=== PATIENT | female | born 1930 | race Two or more races ===

== ENCOUNTER 2022-04-30 14:37 | Inpatient (IN) | payer MEDICARE, BC ==
[2022-04-30] MEDS ORDERED: MORPHINE SULFATE 2 MG/ML SYRINGE IVP STA (15:32)
[2022-04-30] MEDS ORDERED: SODIUM CHLORIDE 0.9% 1,000 ML IV STA (15:37)
[2022-04-30 16:00] LABS: Basophils % (A) 1 %; Eosinophils # (A) 0.1 k/uL (0-0.7); Eosinophils % (A) 1 %; HCT 40.7 % (34.0-46.0); HGB 13.2 gm/dL (11.4-16.0); Lymphocytes # (A) 0.6 k/uL (1.0-4.8); Lymphocytes % (A) 10 %; MCH 33.1 pg (25.0-35.0); MCHC 32.5 g/dL (31.0-37.0); MCV 101.8 fL (80.0-100.0); Macrocytosis Slight; Mean Platelet Volume 8.5; Monocytes # (A) 0.6 k/uL (0-1.0); Monocytes % (A) 10 %; Neutrophils # (A) 4.7 k/uL (1.3-7.7); Neutrophils % (A) 78 %; Platelet Count 330 k/uL (150-450); RBC 3.99 m/uL (3.80-5.40); RDW 14.2 % (11.5-15.5)
--- NOTE | 2022-04-30 16:01 | XR ---
EXAMINATION TYPE: XR pelvis AP view DATE OF EXAM: 04/30/2022 CLINICAL HISTORY: Fall injury with pain TECHNIQUE: A single AP view of the pelvis is obtained. COMPARISON: None. FINDINGS: Osseous structures are demineralized which is noted to lower radiographic sensitivity. Ther e is no acute fracture/dislocation evident in the pelvis. [id number] axial joint space loss and mild acetabular spurring in both hips is present. Pubic symphysis is intact. Sacroiliac joints are grossly preserved. Overlying vascular calcification is seen bilaterally. IMPRESSION: There is no acute fracture or dislocation in the pelvis.
[2022-04-30 16:12] LABS: ALT 24 U/L (4-34); AST 34 U/L (14-36); African American GFR (CKD) >90 (>60 ml/min/1.73 sqM); Albumin 3.6 g/dL (3.5-5.0); Alkaline Phosphatase 61 U/L (38-126); Amylase 76 U/L (30-110); Anion Gap 8 mmol/L; Blood Urea Nitrogen 28 mg/dL (7-17); Calcium 8.9 mg/dL (8.4-10.2); Carbon Dioxide 26 mmol/L (22-30); Chloride 106 mmol/L (98-107); Glucose 99 mg/dL (74-99); Lipase 162 U/L (23-300); Non-African American GFR(CKD) 80 (>60 ml/min/1.73 sqM); Potassium 4.2 mmol/L (3.5-5.1); Sodium 140 mmol/L (137-145); Total Bilirubin 0.7 mg/dL (0.2-1.3); Total Protein 6.4 g/dL (6.3-8.2)
[2022-04-30 16:13] LABS: INR 0.9 (<1.2); Partial Thromboplastin Time 23.3 sec (22.0-30.0); Prothrombin Time 9.7 sec (9.0-12.0)
--- NOTE | 2022-04-30 17:09 | CT ---
EXAMINATION TYPE: CT brain kiran wo con DATE OF EXAM: 04/30/2022 COMPARISON: None HISTORY: head trauma, minor fall CT DLP: 6.7 mGycm Automated exposure control for dose reduction was used. Images of the brain and cervical spine obtained with no contrast. There is diffuse cerebral cortical atrophy. There is no mass effect or midline shift. No sign of intr acranial hemorrhage. There is some hypodensity in the periventricular white matter. Calvarium is inta ct. The cervical vertebra show no compression fracture. No significant subluxation deformity. There is mu ltilevel mild cervical facet arthropathy. The skull base is intact. There is normal aeration of the m astoid sinuses. Occipital bone is intact. IMPRESSION: Cerebral atrophy and chronic small vessel ischemia. No acute intracranial abnormality. Mild multilevel cervical spondylotic changes. No fracture seen.
--- NOTE | 2022-04-30 17:27 | CT ---
EXAMINATION TYPE: CT ChestAbdPelvis w con DATE OF EXAM: 04/30/2022 COMPARISON: None HISTORY: head trauma, minor fall CT DLP: 2056.7 mGycm Automated exposure control for dose reduction was used. CONTRAST: Performed with IV Contrast, patient injected with 100 mL of Isovue 370. Images obtained from the thoracic inlet to the floor the pelvis with the IV contrast. There is moderate left-sided pleural effusion. There is airspace consolidation and atelectasis left l ower lobe. The right lung is fairly clear. Heart is enlarged. No mediastinal adenopathy. There are no hilar masses. Thoracic aorta is intact. No aneurysm or dissection. No filling defect seen in the pul monary arteries. Liver and spleen are intact. There is elevated left diaphragm. Stomach is not dilated. Gallbladder ap pears intact. No dilated ducts. There is normal contrast opacification of the kidneys. No hydronephrosis. There is a large urinary bl adder. No free fluid in the pelvis. There is dilated rectum with fecal material that measures 8.5 cm. No ascites. No evidence of a bowel obstruction. No free air. The bony pelvis is intact. No evidence of hip fracture. There is L2 compression fracture 25%. There is also compression fracture L1 and T12 up to 20%. These fractures could be relatively acute. The sternum is intact. No evidence of any displ aced rib fracture. There is evidence for old lateral healed right-sided rib fracture. Delayed images show normal renal excretion. IMPRESSION: Thoracic and lumbar mild compression fractures could be acute. Rectal fecal impaction. Consolidation and atelectasis left lower lobe with left pleural effusion. Mild cardiomegaly..
--- NOTE | 2022-04-30 17:29 | CT ---
EXAMINATION TYPE: CT thor lumbar spine w con DATE OF EXAM: 04/30/2022 COMPARISON: None HISTORY: head trauma, minor fall CT DLP: 2056.7 mGycm Automated exposure control for dose reduction was used. CONTRAST: Performed with IV Contrast, patient injected with 100 mL of Isovue 370. Images obtained from T1 to S1 with the IV contrast. There is osteopenia. There is no thoracic paraspinal mass. There is left pleural effusion and left lo wer lobe infiltrate and atelectasis. There is compression deformities with anterior wedging of T12 and L1 and L2 up to 25%. Fractures coul d be acute. The sacroiliac joints are intact. No focal bone destruction. IMPRESSION: Multiple compression fractures could be acute fractures in the thoracic and lumbar spine as above..
[2022-04-30] MEDS ORDERED: VANCOMYCIN IV PER PHARMACY 1 EACH MISC MISCELLANE PRN (18:15)
[2022-04-30] MEDS ORDERED: VANCOMYCIN 1,500 MG in SODIUM CHLORIDE 0.9% 500 ML 500 ML IVPB ONE (19:00)
[2022-04-30] MEDS ORDERED: ACETAMINOPHEN TAB 325 MG TAB PO PRN (19:22)
[2022-04-30] MEDS ORDERED: MORPHINE SULFATE 4 MG/ML SYRINGE IV PRN (19:22)
[2022-04-30] MEDS ORDERED: KETOROLAC 15 MG/ML 1 ML VIAL IVP PRN (19:22)
[2022-04-30] MEDS ORDERED: NALOXONE 0.4 MG/ML 1 ML VIAL IV PRN (19:22)
--- NOTE | 2022-04-30 19:35 | ED ---
General Adult HPI - General Chief complaint: Skin/Abscess/Foreign Body Stated complaint: lt breast infection, weakness Time Seen by Provider: 04/30/22 15:15 Source: patient, EMS, RN notes reviewed, old records reviewed Mode of arrival: EMS Limitations: no limitations - History of Present Illness Initial comments: Patient is an 89-year-old female with past medical history remarkable for thyroid disorder currently on no medications who has not seen a doctor for 3 years presents to the emergency department complaining of a worsening wound located in her left armpit, left breast. She is concerned that it may be cancer. States it has been present for multiple months to years, and the open wound aspect of it has been present for at least multiple months. She presents today as it is been losing a foul-smelling liquid more, as well as bleeding at t he site. She denies any fevers. Denies any nausea, vomiting, diarrhea. Denies any recent weight loss. States she has been falling more lately, has chronic back pain since a fall back in November. Last fell yesterday. No obvious injuries yesterday. She denies any sonia chest pain, shortness of breath, abdominal pain, nausea, vomiting. She also endorses left upper extremity swelling. Has no other acute complaint at this time. Presents for further evaluation at this time.Patient states she has not followed up as she has been chronically taking care of her which is been taking up most of her time. Has not seen a doctor in multiple years. - Related Data Home Medications Medication Instructions Recorded Confirmed Acetaminophen [Tylenol Extra 500 mg PO QID 04/30/22 04/30/22 Strength] Allergies Allergy/AdvReac Type Severity Reaction Status Date / Time No Known Allergies Allergy Verified 04/30/22 15:37 Review of Systems ROS Statement: Those systems with pertinent positive or pertinent negative responses have been documented in the HPI. Review of Systems: CONST: Denies fever EYES: Denies blurry vision ENT: Denies nasal congestion C/V: Denies Chest pain RESP: Denies shortness of breath GI: Denies abdominal pain : Denies dysuria SKIN: Endorses chronic chest wound MSK: Denies joint pain. NEURO: Denies headache ROS Other: All systems not noted in ROS Statement are negative. Past Medical History Past Medical History: Thyroid Disorder Additional Past Surgical History / Comment(s): thyroidectomy 1955 Smoking Status: Former smoker Past Alcohol Use History: Occasional Past Drug Use History: None Reported General Exam - General Exam Comments Initial Comments: General: Appears in no acute distress. HEAD: Normal with no signs of head trauma. EYES: PERRLA, EOMI, conjunctiva normal, no discharge. ENT: Hearing grossly intact, normal oropharynx. RESPIRATORY: Clear breath sounds bilaterally. No wheezes, rales, or rhonchi. No hypoxia. No increased work of breathing. C/V: Regular rate and rhythm. S1 and S2 auscultated, mild bilateral pitting edema of the lower extremities, peripheral pulses 2+ and intact throughout. Left upper extremity pitting edema. ABD: Abd is soft, nontender, nondistended EXT: Normal range of motion, no obvious deformity. Midline lumbar and thoracic spine tenderness to palpation. SKIN: Patient has what appears to be an open wound located over the breast tissue on the left which appears to have diminished the volume of breast tissue present. It is oozing blood as well as a serosanguineous/purulent material. There is surrounding induration. There is scabbing. No obvious fluctuance. No crepitus. Extends from the left breast region to the left axilla. Erythematous surrounding the area. No obvious masses palpated.Old bruising located over the left inferior posterior ribs. NEURO: Alert and oriented x 4. Cranial nerves II-XII intact. No focal sensory or strength deficits. Limitations: no limitations Course Vital Signs 04/30/22 04/30/22 04/30/22 14:44 18:51 19:24 Temperature 97.8 F Pulse Rate 60 87 87 Respiratory 18 18 16 Rate Blood Pressure 104/72 139/93 120/70 O2 Sat by Pulse 95 95 95 Oximetry Medical Decision Making - Medical Decision Making Based on the patient's presentation and physical exam, she does present with chronic skin wound which I'm concerned may be secondary to cancer. It is been present for multiple weeks to months with symptoms worsening for multiple weeks. She has been having left upper extremity swelling for multiple weeks as well. She presents today because she fell yesterday and the symptoms are getting worse. We will obtain broad workup including CT imaging of the chest abdomen pelvis. CT brain and spinal also be obtained. Prior pulmonary labs as well as the left upper extremity duplex will be obtained. She was in agreement this plan. Vital signs are within acceptable limits. EKG shows no signs of acute ischemia but no prior EKG for comparison. Patient does appear to have new onset atrial flutter ablation. Laboratory studies are within acceptable limits. Blood and wound cultures were sent. Pelvic x-ray as interpreted by myself reveals no acute traumatic injury. CT imaging of the brain, cervical spine, thorax, abdomen, pelvis, thoracic spine, lumbar spine was remarkable for compression fractures in the lumbar and thoracic spine. No obvious air bubbles to suggest a necrotizing infection located over the left chest. Patient does have a small left pleural effusion. No other obvious findings on exam. CT brain shows no acute intracranial process. CT brain and the above CT scans were interpreted by myself. Venous duplex is still pending at this time. I discussed the findings with the patient as well as the patient's family. She will be started on vancomycin for concern for cellulitis for the left chest wound. We will consult infectious disease to evaluate the wound. As it does have some blood oozing from the site as well as what appears to be some purulent material, we will hold blood thinners at this time. Her atrial fibrillation I suspect is likely chronic we will have cardiology evaluate the patient and determined anticoagulation. Echo was ordered for the patient. She was in agreement this plan. I spoke with the admitting physician, Dr. Awan as well as LOBITO Cuadra who accepted the patient. Patient was admitted and serous condition. Orthopedics will be consulted for the patient's compression fractures, which are likely chronic from the fall in November she does have chronic pain from that fall at those sites. - Lab Data Result diagrams: 04/30/22 15:37 04/30/22 15:37 Lab Results 04/30/22 04/30/22 04/30/22 Range/Units 15:20 15:37 15:37 WBC 6.0 (3.8-10.6) k/uL RBC 3.99 (3.80-5.40) m/uL Hgb 13.2 (11.4-16.0) gm/dL Hct 40.7 (34.0-46.0) % MCV 101.8 H (80.0-100.0) fL MCH 33.1 (25.0-35.0) pg MCHC 32.5 (31.0-37.0) g/dL RDW 14.2 (11.5-15.5) % Plt Count 330 (150-450) k/uL MPV 8.5 Neutrophils % 78 % Lymphocytes % 10 % Monocytes % 10 % Eosinophils % 1 % Basophils % 1 % Neutrophils # 4.7 (1.3-7.7) k/uL Lymphocytes # 0.6 L (1.0-4.8) k/uL Monocytes # 0.6 (0-1.0) k/uL Eosinophils # 0.1 (0-0.7) k/uL Basophils # 0.0 (0-0.2) k/uL Macrocytosis Slight PT 9.7 (9.0-12.0) sec INR 0.9 (<1.2) APTT 23.3 (22.0-30.0) sec Sodium (137-145) mmol/L Potassium (3.5-5.1) mmol/L Chloride (98-107) mmol/L Carbon Dioxide (22-30) mmol/L Anion Gap mmol/L BUN (7-17) mg/dL Creatinine (0.52-1.04) mg/dL Est GFR (CKD-EPI)AfAm (>60 ml/min/1.73 sqM) Est GFR (CKD-EPI)NonAf (>60 ml/min/1.73 sqM) Glucose (74-99) mg/dL Plasma Lactic Acid Tomas (0.7-2.0) mmol/L Calcium (8.4-10.2) mg/dL Total Bilirubin (0.2-1.3) mg/dL AST (14-36) U/L ALT (4-34) U/L Alkaline Phosphatase (38-126) U/L Total Protein (6.3-8.2) g/dL Albumin (3.5-5.0) g/dL Amylase (30-110) U/L Lipase (23-300) U/L Blood Type A Positive Blood Type Confirm Blood Type Recheck No Previous Record Bld Type Recheck Status CABO Indicated Antibody Screen NEGATIVE Spec Expiration Date 05/03/2022231904/30/22 04/30/22 04/30/22 Range/Units 15:37 15:37 15:37 WBC (3.8-10.6) k/uL RBC (3.80-5.40) m/uL Hgb (11.4-16.0) gm/dL Hct (34.0-46.0) % MCV (80.0-100.0) fL MCH (25.0-35.0) pg MCHC (31.0-37.0) g/dL RDW (11.5-15.5) % Plt Count (150-450) k/uL MPV Neutrophils % % Lymphocytes % % Monocytes % % Eosinophils % % Basophils % % Neutrophils # (1.3-7.7) k/uL Lymphocytes # (1.0-4.8) k/uL Monocytes # (0-1.0) k/uL Eosinophils # (0-0.7) k/uL Basophils # (0-0.2) k/uL Macrocytosis PT (9.0-12.0) sec INR (<1.2) APTT (22.0-30.0) sec Sodium 140 (137-145) mmol/L Potassium 4.2 (3.5-5.1) mmol/L Chloride 106 (98-107) mmol/L Carbon Dioxide 26 (22-30) mmol/L Anion Gap 8 mmol/L BUN 28 H (7-17) mg/dL Creatinine 0.63 (0.52-1.04) mg/dL Est GFR (CKD-EPI)AfAm >90 (>60 ml/min/1.73 sqM) Est GFR (CKD-EPI)NonAf 80 (>60 ml/min/1.73 sqM) Glucose 99 (74-99) mg/dL Plasma Lactic Acid Tomas 1.3 (0.7-2.0) mmol/L Calcium 8.9 (8.4-10.2) mg/dL Total Bilirubin 0.7 (0.2-1.3) mg/dL AST 34 (14-36) U/L ALT 24 (4-34) U/L Alkaline Phosphatase 61 (38-126) U/L Total Protein 6.4 (6.3-8.2) g/dL Albumin 3.6 (3.5-5.0) g/dL Amylase 76 (30-110) U/L Lipase 162 (23-300) U/L Blood Type Blood Type Confirm A Positive Blood Type Recheck Bld Type Recheck Status Antibody Screen Spec Expiration Date - EKG Data -: EKG Interpreted by Me EKG Comments: 12-lead Electrocardiogram Interpretation Note EKG was reviewed and interpreted by myself. 12-lead ECG performed at 1609 is interpreted by me as revealing atrial fibrillation at a rate of 106 beats per minute. Anderson is normal. QRS duration is 82 ms, QTc is 411 ms.. There were no ST or T wave abnormalities to suggest myocardial ischemia or injury. R wave progression across the precordium was satisfactory. By my interpretation this EKG is non-diagnostic for acute ischemia. No prior EKG for comparison. Critical Care Time Critical Care Time: Yes Total Critical Care Time: 35 Critical Care Time: Upon my evaluation, this patient had a high probability of imminent or life- threatening deterioration due to severe left chest wound, which required my direct attention, intervention, and personal management. I have personally provided 35 minutes of critical care time exclusive of time spent on separately billable procedures. Time includes review of laboratory data, radiology results, discussion with consultants, and monitoring for potential decompensation. Interventions were performed as documented in my note. Disposition Clinical Impression: Wound of left breast, Cellulitis, New onset a-fib, Lumbar compression fracture, Thoracic compression fracture Disposition: ADMITTED IP TO THIS [facility] Condition: Stable Time of Disposition: 18:20
--- NOTE | 2022-04-30 19:51 | US ---
EXAMINATION TYPE: US venous doppler duplex UE DATE OF EXAM: 04/30/2022 COMPARISON: NONE CLINICAL HISTORY: Patient has severe swelling of left arm with extensive interstitial edema. SIDE PERFORMED: Left Left Arm: Exam very limited due to patient mobility and severe interstitial edema. Limited visualiza tion of subclavian vein shows probable patent vein. Flow is thready at this area. Unable to visualize axilla vein, brachial vein seen only at antecubital fossa. No obvious DVT, however exam severely mayen ited. Basilic vein not seen. IMPRESSION: Exam is limited. No evidence of acute deep vein thrombosis in the left arm. There is some thready villa earing flow in the subclavian vein and some limited chronic deep vein thrombosis is possible.
[2022-05-01] MEDS ORDERED: VANCOMYCIN 1,250 MG in SODIUM CHLORIDE 0.9% 250 ML IVPB SCH (08:00)
[2022-05-01 09:42] LABS: Appearance,Urine Clear (Clear); Bilirubin,Urine Negative (Negative); Blood,Urine Negative (Negative); Color,Urine Yellow; Glucose,Urine (UA) Negative (Negative); Ketones,Urine Negative (Negative); Leukocyte Esterase,Urine Negative (Negative); Nitrite,Urine Negative (Negative); PH, Urine 5.5 (5.0-8.0); Protein,Urine Trace (Negative); Specific Gravity,Urine 1.031 (1.001-1.035); Urobilinogen,Urine <2.0 mg/dL (<2.0)
[2022-05-01 11:19] LABS: Basophils # (A) 0.06 X 10*3/uL (0.00-0.10); Eosinophils # (A) 0.07 X 10*3/uL (0.04-0.35); Eosinophils % (A) 1.2 %; HCT 37.2 % (37.2-46.3); HGB 11.7 g/dL (12.0-15.0); Immature Grans, Automated 0.3 %; Lymphocytes # (A) 0.73 X 10*3/uL (0.90-5.00); Lymphocytes % (A) 12.4 %; MCH 32.3 pg (27.0-32.0); MCHC 31.5 g/dL (32.0-37.0); MCV 102.8 fL (80.0-97.0); Mean Platelet Volume 9.8 fL (9.5-12.2); Monocytes # (A) 0.72 X 10*3/uL (0.20-1.00); Monocytes % (A) 12.3 %; NRBC Per 100 WBC 0 /100 WBCS (0.0-0.0); Neutrophils # (A) 4.27 X 10*3/uL (1.80-7.70); Neutrophils % (A) 72.8 %; Platelet Count 270 X 10*3/uL (140-440); RBC 3.62 X 10*6/uL (4.10-5.20); RDW 15.5 % (11.5-14.5); WBC 5.87 X 10*3/uL (4.50-10.00)
[2022-05-01 11:27] LABS: African American GFR (CKD) 93.7 (60.0-200.0); Anion Gap 11.3 mmol/L (10.00-18.00); BUN/Creat Ratio 37.5 Ratio (12.00-20.00); Blood Urea Nitrogen 22.5 mg/dL (9.0-27.0); Calcium 8.6 mg/dL (8.7-10.3); Carbon Dioxide 22.7 mmol/L (20.0-27.5); Non-African American GFR(CKD) 80.8 (60.0-200.0); Potassium 4.3 mmol/L (3.5-5.5)
[2022-05-01] MEDS ORDERED: HYDROcodone/APAP 5-325MG 1 EACH TAB PO PRN (11:57)
--- NOTE | 2022-05-01 13:21 | P.CNOR ---
History of Present Illness - [facility] Consult date: 05/01/22 Consult reason: fracture, back pain History of present illness: The patient is very pleasant 89-year-old female who was seen and examined in the ER at bedside today. She is accompanied by her daughter and son. Apparently patient is being evaluated in the emergency room and seen due to cellulitis at her breast as well as swelling and cellulitis at her left lower extremity. She is also been having pain at her back and sustained a fall on . She says she has new pain at her mid back since her fall on . She says she did have pain earlier this year in November after sustaining a fall as well. She says that pain was much worse than his current pain but it was improving until she fell again the other day. She denies any new changes with numbness and tingling in her lower extremity is. She has some swelling in her left foot and lower leg. She denies prior problems with her lower extremities. She denies any change in bowel bladder function. She has not had specific treatment for her sp ine in the past. Review of Systems As stated per HPI. Apparently she is normally a limited community ambulate or put able to get around. She says she fell while picking up dog poop She admits some changes in her breast with some drainage. She also admits to swelling and some erythema at her left lower leg She denies any new changes in bowel bladder function. She denies any new numbness tingling her lower extremities Past Medical History Past Medical History: Thyroid Disorder Additional Past Surgical History / Comment(s): thyroidectomy 1954 Smoking Status: Former smoker Past Alcohol Use History: Occasional Past Drug Use History: None Reported Medications and Allergies Home Medications Medication Instructions Recorded Confirmed Type Acetaminophen [Tylenol Extra 500 mg PO QID 04/30/22 04/30/22 History Strength] Allergies Allergy/AdvReac Type Severity Reaction Status Date / Time No Known Allergies Allergy Verified 04/30/22 15:37 Physical Examination Osteopathic Statement: *. No significant issues noted on an osteopathic structural exam other than those noted in the History and Physical/Consult. - L Spine: dermatomal strength & reflexes bilateral Strength: hip flexion: 5/5 (At her back she has tenderness to palpation over her thoracolumbar junction. There is no open wounds lacerations or abrasions. She is nontender over her lower back or sacrum. Her lower extremities have sustained dorsal flexion plantarflexion and EHL. There is some diffuse swelling at her left lo) Strength: hip extension: 5/5 (She has good strength at her legs but she has some diffuse swelling in her left lower extremity) Results - Labs Labs: Abnormal Lab Results - Last 24 Hours (Table) 04/30/22 04/30/22 05/01/22 Range/Units 15:37 15:37 08:20 RBC 3.62 L (4.10-5.20) X 10*6/uL Hgb 11.7 L (12.0-15.0) g/dL MCV 101.8 H 102.8 H (80.0-100.0) fL MCH 32.3 H (27.0-32.0) pg MCHC 31.5 L (32.0-37.0) g/dL RDW 15.5 H (11.5-14.5) % Lymphocytes # 0.6 L 0.73 L (1.0-4.8) k/uL BUN 28 H (7-17) mg/dL BUN/Creatinine Ratio (12.00-20.00) Ratio Calcium (8.7-10.3) mg/dL Urine Protein (Negative) 05/01/22 05/01/22 Range/Units 08:20 09:10 RBC (4.10-5.20) X 10*6/uL Hgb (12.0-15.0) g/dL MCV (80.0-100.0) fL MCH (27.0-32.0) pg MCHC (32.0-37.0) g/dL RDW (11.5-14.5) % Lymphocytes # (1.0-4.8) k/uL BUN (7-17) mg/dL BUN/Creatinine Ratio 37.50 H (12.00-20.00) Ratio Calcium 8.6 L (8.7-10.3) mg/dL Urine Protein Trace H (Negative) Microbiology - Last 24 Hours (Table) 04/30/22 15:15 Blood Culture - Final Blood 04/30/22 15:53 Gram Stain - Preliminary Axilla - Left Wound Culture - Preliminary 04/30/22 15:53 Anaerobic Culture - Preliminary Axilla - Left H & H 04/30/22 05/01/22 Range/Units 15:37 08:20 Hgb 13.2 11.7 L (11.4-16.0) gm/dL Hct 40.7 37.2 (34.0-46.0) % Coagulation 04/30/22 Range/Units 15:37 INR 0.9 (<1.2) Result Diagrams: 05/01/22 08:20 05/01/22 08:20 - Diagnostic results CT Scan - lumbar: report reviewed (There is significant disc degeneration and facet arthrosis and lumbar spine. There is approximately 20-40% anterior height loss each at T12-L1 and L2), image reviewed (Imaging of the computed tomography scan of the thoracic lumbar spine reviewed as is the report. It shows evidence of compression deformities at T12-L1 and L2. It is difficult to determine the chronicity of the fractures on CT. There does seem to be a relatively newer fracture line at L1. 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 It is difficult to determine if the T12 and L2 fractures are new or but they appear to be somewhat subacute and the fracture lines at L1 appear to be more acute. She her exam does correlate with pain over the thoracolumbar junction. She is not having acute neurologic deficit in her lower extremities and I think that she can have benefit with conservative treatment with bracing. We will order her a high chairback LSO. Hopefully she will be able to wear this and still I have access and treatment with her breast tissue. She is continue management for this as well as for her lower extremity cellulitis with medicine. We will order the LSO brace and she can try to mobilize with the brace intact. We'll see discussed the possibility of vertebral kyphoplasty but certainly would like to avoid surgical intervention if possible as with the patient and her family. We will try conservative treatment over the next several weeks to see if this allows the fracture to heal appropriately with her comfort. We'll follow her along with you for now. We will order the brace and have her mobilize with physical therapy.
[2022-05-01] MEDS: PIPERACILLIN-TAZOBACTAM 3.375 GM in SODIUM CHLORIDE 0.9% 100 ML IVPB SCH ×2 (14:15→19:52)
[2022-05-01] MEDS: HEPARIN SODIUM,PORCINE/PF 5,000 UNIT/0.5 ML SYRINGE SQ SCH ×2 (14:16→19:53)
--- NOTE | 2022-05-01 20:18 | HP ---
HISTORY AND PHYSICAL CHIEF COMPLAINT: Ulcerating mass of the left breast and fall. HISTORY OF PRESENT ILLNESS: This 89-year-old woman with a past medical history of hypothyroidism, who has not seen the doctor for the last 3 years had a fall. The patient is complaining of pain in the back and also pain to the left armpit and the patient had an ulcerating mass in the left breast. The patient came to [facility] for evaluation and treatment. The mass was foul-smelling. Cultures are growing gram-negative. There is no history of any fever, rigors, chills at this time. PAST MEDICAL HISTORY: Thyroid problems. Rest of the history and chart is reviewed. HOME MEDICATIONS: Tylenol. ALLERGIES: Unknown. FAMILY HISTORY: No history of heart disease or strokes in the family. SOCIAL HISTORY: Previous history of smoking, occasional alcohol. REVIEW OF SYSTEMS: Fourteen-point review of systems negative except as mentioned earlier. PHYSICAL EXAMINATION: VITAL SIGNS: Pulse is 81, blood pressure 130/60, respirations 18. HEENT: Conjunctivae normal. NECK: No jugular venous distention. No carotid bruit. CARDIOVASCULAR: No murmur. RESPIRATIONS: Breath sounds diminished at the bases. Few rhonchi. No crackles. ABDOMEN: Soft, nontender. LEGS: No swelling. NERVOUS SYSTEM: No focal deficits. SKIN: Left breast, an ulcerating mass present with foul smelling extending to the arm with left arm lymphedema also present. BACK: Tenderness present. JOINTS: No active deforming arthropathy. LABORATORY DATA: Hemoglobin 11.0. Rest of the labs are noted. The venous Doppler on the arm showed no significant DVT. The CT showed vertebral fractures and CT of the chest, abdomen, pelvis showed some atelectasis. ASSESSMENT: 1. Left breast mass with ulcerated mass and infection, cellulitis. 2. Fall and multiple thoracic compression fractures. 3. New onset atrial fibrillation. 4. Hypothyroidism. 5. Multiple medical issues. 6. History of noncompliance. RECOMMENDATIONS: The patient is an 89-year-old woman, who presented with multiple complex medical issues. We will monitor the patient closely. We will initiate broad-spectrum IV antibiotics. Pain medications. DVT prophylaxis. I would recommend Orthopedic as well as Hematology/Oncology and infectious disease evaluation. Overall prognosis extremely guarded. Further recommendations to follow. Cardiology also will be consulted for new- onset atrial fibrillation. MMODL / IJN: [id number] /
--- NOTE | 2022-05-01 20:25 | PN ---
PROGRESS NOTE SUBJECTIVE: Ariadne is an 89-year-old lady, who was admitted to hospital having had a fall at home and we were consulted for atrial fibrillation. Her EKG reads out as atrial fibrillation, but she is really in sinus rhythm with nonspecific ST-T wave changes and sinus tachycardia. The patient has a non-healing ulcer on the left side, probably represents an invasive breast cancer. She has not been seen by a physician for many many years. This mass on the left chest has been there for a long time. The patient does not have any chest pain or difficulty in breathing. She does not have any palpitations or syncope. For unclear reason, she had a BNP tested that comes back elevated. She does not have shortness of breath and does not have any leg edema and the elevated BNP is of unclear clinical significance. PAST MEDICAL HISTORY: Negative for hypertension, diabetes, dyslipidemia. Significant for long-standing mass lesion on her chest. MEDICATIONS: None. ALLERGIES: None. FAMILY HISTORY: Negative for premature coronary artery disease. SOCIAL HISTORY: Negative for current smoking, EtOH abuse, or drug abuse. REVIEW OF SYSTEMS: review of systems has been performed. Pertinents are as documented on exam. PHYSICAL EXAMINATION: GENERAL: Comfortable at rest. VITAL SIGNS: Heart rate is 80 beats per minute, blood pressure is 132/75, respiratory rate is 18, O2 saturation is 99% on room air. NECK: There is no jugular venous distention. Carotid upstroke is normal. CHEST: Reveals good air entry bilaterally. HEART: Reveals first and second heart sounds and a systolic murmur at the left lower sternal border. ABDOMEN: Soft. EXTREMITIES: Exam of extremities did not reveal any edema. She has a large ulcerated mass over the left breast, probably represents an invasive breast cancer. ASSESSMENT AND PLAN: 1. Cardiac arrhythmia. 2. Breast cancer with skin invasion. PLAN: The patient is not in atrial fibrillation. She has an abnormal EKG. We will obtain a 2D echo on Tuesday to assess her wall motion and LV function primarily to rule out prior myocardial infarction. MMODL / IJN: [id number] /
--- NOTE | 2022-05-01 23:13 | P.CONS ---
History of Present Illness - Reason for Consult Consult date: 05/01/22 Chest wound/cellulitis Requesting physician: Ancelmo Faustin - Chief Complaint Pain and nonhealing wound to the left breast area x months - History of Present Illness Patient is a 89-year-old female with a past medical history significant for thyroid disorder currently on no medication and apparently has not seen a physician in 3 years presenting to the ER for a nonhealing wound to the left armpit/ left breast area with the patient has for months to years ho kyler noticed to have worsening over the last few weeks to months is becoming more foul-smelling drainage complaining of pain mostly dull aching to sharp 5-6 or 10 no radiation patient denies any fever patient has been feeling weak and falling more lately last fall was yesterday and the day before presentation to the hospital with the symptom the patient was evaluated by the ER physician on arrival to the ER patient was afebrile and no fever have been recorded subsequently patient did have normal white count kidney function has been normal liver enzymes are normal urine has been negative patient did have blood cultures drawn which are showing gram-positive cocci patient did have a CT of the chest abdominal pelvis some mild skin thickening over the anterior left breast that could be cellulitis rectal fecal impaction, consolidation and atelectasis left lower lobe patient also have a CT of the thoracic and lumbar spine which did shows multiple compression deformities in thoracic and lumbar spine patient is currently being treated with vancomycin and Zosyn infectious disease was consulted for further management of antibiotic therapy Review of Systems Positive point has been mentioned in the HPI rest of the systems are negative Past Medical History Past Medical History: Thyroid Disorder Additional Past Surgical History / Comment(s): thyroidectomy 1954 Smoking Status: Former smoker Past Alcohol Use History: Occasional Past Drug Use History: None Reported - Past Family History Father Family Medical History: Myocardial Infarction ([place]) Mother Family Medical History: CVA/TIA, Myocardial Infarction ([place]) Medications and Allergies Home Medications Medication Instructions Recorded Confirmed Type Acetaminophen [Tylenol Extra 500 mg PO QID 04/30/22 04/30/22 History Strength] Ciprofloxacin HCl [Cipro] 500 mg PO BID 10 Days #20 tab 05/07/22 Rx Folic Acid 1 mg PO DAILY@1200 tab 05/07/22 Rx Heparin Sodium,Porcine [Heparin 5,000 unit SQ Q12HR #60 each 05/07/22 Rx Sodium] Melatonin 5 mg PO HS PRN #3 tablet 05/07/22 Rx Multivitamins, Thera [Multivitamin 1 each PO DAILY@1200 tab 05/07/22 Rx (formulary)] Sennosides [Senokot] 8.6 mg PO BID #60 tab 05/07/22 Rx Thiamine [Vitamin B-1] 100 mg PO DAILY@1200 tab 05/07/22 Rx bisacodyL [Dulcolax] 10 mg RECTAL ONCE PRN suppositor 05/07/22 Rx metroNIDAZOLE [Flagyl] 500 mg PO TID 10 Days #30 tab 05/07/22 Rx polyethylene glycoL 3350 [Miralax] 17 gm PO DAILY PRN packet 05/07/22 Rx Allergies Allergy/AdvReac Type Severity Reaction Status Date / Time No Known Allergies Allergy Verified 04/30/22 15:37 Physical Exam Vitals: Vital Signs Temp Pulse Pulse Resp BP BP BP 05/01/22 09:11 82 16 122/78 05/01/22 04:00 81 18 136/69 05/01/22 02:00 93 18 04/30/22 23:02 97.9 F 86 16 111/63 04/30/22 19:24 87 16 120/70 04/30/22 18:51 87 18 139/93 04/30/22 14:44 97.8 F 60 18 104/72 Pulse Ox 05/01/22 09:11 99 05/01/22 04:00 96 05/01/22 02:00 04/30/22 23:02 95 04/30/22 19:24 95 04/30/22 18:51 95 04/30/22 14:44 95 Intake and Output 04/30/22 05/01/22 05/01/22 22:59 06:59 14:59 Other: Voiding Method Bedpan # Voids 0 0 GENERAL DESCRIPTION: Elderly female lying in bed, no distress. No tachypnea or accessory muscle of respiration use. HEENT: Shows Pallor , no scleral icterus. Oral mucous membrane is dry. No pharyngeal erythema or thrush NECK: Trachea central, no thyromegaly. LUNGS: Unlabored breathing. Clear to auscultation anteriorly. No wheeze or crackle. HEART: S1, S2, regular rate and rhythm. No loud murmur ABDOMEN: Soft, no tenderness , guarding or rigidity, no organomegaly EXTREMITIES: No edema of feet. SKIN: No left chest wall and axilla did have a large wound with foul-smelling drainage. NEUROLOGICAL: The patient is awake, alert, oriented x3, mood and affect normal. Results CBC & Chem 7: 05/06/22 06:41 05/06/22 06:41 Labs: Abnormal Lab Results - Last 24 Hours (Table) 04/30/22 04/30/22 05/01/22 Range/Units 15:37 15:37 08:20 RBC 3.62 L (4.10-5.20) X 10*6/uL Hgb 11.7 L (12.0-15.0) g/dL MCV 101.8 H 102.8 H (80.0-100.0) fL MCH 32.3 H (27.0-32.0) pg MCHC 31.5 L (32.0-37.0) g/dL RDW 15.5 H (11.5-14.5) % Lymphocytes # 0.6 L 0.73 L (1.0-4.8) k/uL BUN 28 H (7-17) mg/dL BUN/Creatinine Ratio (12.00-20.00) Ratio Calcium (8.7-10.3) mg/dL Urine Protein (Negative) 05/01/22 05/01/22 Range/Units 08:20 09:10 RBC (4.10-5.20) X 10*6/uL Hgb (12.0-15.0) g/dL MCV (80.0-100.0) fL MCH (27.0-32.0) pg MCHC (32.0-37.0) g/dL RDW (11.5-14.5) % Lymphocytes # (1.0-4.8) k/uL BUN (7-17) mg/dL BUN/Creatinine Ratio 37.50 H (12.00-20.00) Ratio Calcium 8.6 L (8.7-10.3) mg/dL Urine Protein Trace H (Negative) Microbiology - Last 24 Hours (Table) 04/30/22 15:15 Blood Culture - Final Blood 04/30/22 15:53 Gram Stain - Preliminary Axilla - Left Wound Culture - Preliminary 04/30/22 15:53 Anaerobic Culture - Preliminary Axilla - Left Assessment and Plan (1) Cellulitis Status: Acute Code(s): L03.90 - CELLULITIS, UNSPECIFIED SNOMED Code(s): 694125214 (2) Wound of left breast Status: Acute Priority: High Code(s): S21.002A - UNSPECIFIED OPEN WOUND OF LEFT BREAST, INITIAL ENCOUNTER SNOMED Code(s): 97422853 Plan: 1patient with a chronic nonhealing wound to the left chest wall and armpit area with concern for possible malignancy as did have hard margins and no significant redness some drainage and foul-smelling possible secondary bacterial infection not entirely excluded. 2patient will benefit from biopsy and surgical debridement 3-patient to continue with the Zosyn while waiting for the culture to finalize, however discontinue vancomycin to decrease risk of nephrotoxicity We will follow on clinical condition and cultures to further adjust medication if needed Thank you for this consultation will follow this patient along with you Time with Patient: Greater than 30
[2022-05-02] MEDS: PIPERACILLIN-TAZOBACTAM 3.375 GM in SODIUM CHLORIDE 0.9% 100 ML IVPB SCH ×3 (03:02→19:42)
[2022-05-02] MEDS: HEPARIN SODIUM,PORCINE/PF 5,000 UNIT/0.5 ML SYRINGE SQ SCH ×2 (09:03→19:42)
[2022-05-02 09:46] LABS: Basophils # (A) 0.1 k/uL (0-0.2); Basophils % (A) 1 %; Eosinophils # (A) 0.2 k/uL (0-0.7); Eosinophils % (A) 3 %; HCT 36.8 % (34.0-46.0); HGB 11.6 gm/dL (11.4-16.0); Hypochromasia Slight; Lymphocytes # (A) 0.7 k/uL (1.0-4.8); Lymphocytes % (A) 11 %; MCH 32.9 pg (25.0-35.0); MCHC 31.6 g/dL (31.0-37.0); Macrocytosis Moderate; Mean Platelet Volume 8.4; Monocytes # (A) 0.5 k/uL (0-1.0); Monocytes % (A) 8 %; Neutrophils # (A) 4.6 k/uL (1.3-7.7); Neutrophils % (A) 76 %; Platelet Count 289 k/uL (150-450); RBC 3.54 m/uL (3.80-5.40); RDW 14.5 % (11.5-15.5); WBC 6.1 k/uL (3.8-10.6)
[2022-05-02 09:59] LABS: African American GFR (CKD) >90 (>60 ml/min/1.73 sqM); Anion Gap 3 mmol/L; Blood Urea Nitrogen 19 mg/dL (7-17); Calcium 7.9 mg/dL (8.4-10.2); Carbon Dioxide 26 mmol/L (22-30); Chloride 107 mmol/L (98-107); Glucose 103 mg/dL (74-99); Non-African American GFR(CKD) 79 (>60 ml/min/1.73 sqM); Potassium 4.3 mmol/L (3.5-5.1); Sodium 136 mmol/L (137-145)
[2022-05-02] MEDS: THIAMINE 100 MG TAB PO SCH (10:59)
[2022-05-02] MEDS: MULTIVITAMINS, THERA 1 EACH TAB PO SCH (10:59)
[2022-05-02] MEDS: FOLIC ACID 1 MG TAB PO SCH (11:03)
[2022-05-02 11:10] LABS: T4, Free (Free Thyroxine) 1.47 ng/dL (0.78-2.19)
--- NOTE | 2022-05-02 12:16 | P.PN ---
Subjective Progress Note Date: 05/02/22 Patient is doing well resting comfortably in bed in no signs of acute distress. She denies chest pain or increasing shortness of breath. She remains sinus rhythm on the monitor. Patient was awaiting an echocardiogram. She is tender to the touch on the left side of the chest and axillary. due to a nonhealing ulcer on the left side probably representing invasive breast cancer. She does not wish to undergo an echocardiogram due to the discomfort of that area. At this time patient remains asymptomatic, patient's issue seem to be mainly related to to the unhealed ulcer. At this time further cardiac intervention is needed we'll continue to follow patient as needed. Objective - Vital Signs Vital signs: Vital Signs Temp 97.1 F L 05/02/22 11:14 Pulse 83 05/02/22 11:14 Resp 16 05/02/22 11:14 BP 129/72 05/02/22 11:14 Pulse Ox 94 L 05/02/22 11:14 FiO2 Intake & Output 05/01/22 05/02/22 05/02/22 18:59 06:59 18:59 Intake Total 305 Output Total 250 175 Balance -250 130 Weight 72.575 kg Intake: IV 5 Invasive Line 2 5 Oral 300 Output: Urine 250 175 Other: Voiding Method Indwelling Catheter Indwelling Catheter Indwelling Catheter - Exam PHYSICAL EXAM: VITAL SIGNS: Reviewed. GENERAL: Well-developed in no acute distress. HEENT: Head is normocephalic. Pupils are equal, round. Sclerae anicteric. Mucous membranes of the mouth are moist. NECK: Supple. No JVD or thyromegaly RESPIRATORY: Respirations even and unlabored. Lungs diminished to auscultation bilaterally. CARDIO: Regular rate and rhythm. S1 and S2 heard. No murmur or gallops. EXTREMITIES: Normal range of motion. Peripheral pulses intact. Large ulcerated mass over the left breast tender to the touch left upper extremity edema NEURO: Orientated to person, time, mood is appropriate - Labs CBC & Chem 7: 05/02/22 08:41 05/02/22 08:41 Labs: Abnormal Lab Results - Last 24 Hours (Table) 05/02/22 05/02/22 Range/Units 08:41 08:41 RBC 3.54 L (3.80-5.40) m/uL MCV 104.0 H (80.0-100.0) fL Lymphocytes # 0.7 L (1.0-4.8) k/uL Sodium 136 L (137-145) mmol/L BUN 19 H (7-17) mg/dL Glucose 103 H (74-99) mg/dL Calcium 7.9 L (8.4-10.2) mg/dL TSH 6.840 H (0.465-4.680) mIU/L Microbiology - Last 24 Hours (Table) 04/30/22 15:30 Blood Culture Gram Stain - Preliminary Blood 04/30/22 15:30 Blood Culture - Final Blood 04/30/22 15:53 Gram Stain - Preliminary Axilla - Left Wound Culture - Preliminary Gram Neg Bacilli 04/30/22 15:15 Blood Culture Gram Stain - Preliminary Blood Blood Culture - Preliminary Coagulase Negative Staph 04/30/22 15:15 Blood Culture - Final Blood Assessment and Plan Assessment: Cardiac arrhythmia Possible breast cancer with skin invasion Plan: Continue to follow on an as-needed basis Continue with all current cardiac medications Continue with telemetry monitoring Echocardiogram canceled, per patient Further recommendations based on clinical course The above impression and plan of care have been discussed and directed by the signing physician. Shanell Dalal, nurse practitioner, acting as scribe for signing physician.
--- NOTE | 2022-05-02 16:08 | P.CONS ---
History of Present Illness - Reason for Consult Consult date: 05/02/22 malignancy Requesting physician: Sandy Awan - Chief Complaint Foul smelling odor from breast wound - History of Present Illness Ms. Barbosa is a very pleasant 89 yo female with no PMH who is here for fall as well as foul smelling odor from a chronic left breast/axillary wound. States wound in left breast and axilla began several years ago. Initially felt a small lump lateral to her left nipple which she thought was a cyst however this slowly progressively grew. A few months ago she developed an open wound there. Now noticing new foul smelling discharge which prompted ED visit. Also admits to multiple falls, first one in October 2021. Work up with CT head and C spine overall negative, CBC normal with WBC 6, Hgb 13, MCV 101.8, normal platelets, normal CMP and coag's, pelvic X ray overall unremarkable. CT CAP with left lower lung consolidation and pleural effusion as well as T and L spine compression fractures. CT T and L spine confirmed multiple scattered compression fractures, possibly acute. LUE doppler was negative for DVT. Admitted with IV antibiotics. We were consulted for concern of malignancy. She does admit to weight loss however says that she has not been eating very well since the summer due to the pain from her back after her falls. She does live alone and is very independent, complete her ADLs on her own. Denies any smoking, alcohol, or drug use. Past Medical History Past Medical History: Thyroid Disorder Additional Past Surgical History / Comment(s): thyroidectomy 1954 Smoking Status: Former smoker Past Alcohol Use History: Occasional Past Drug Use History: None Reported - Past Family History Father Family Medical History: Myocardial Infarction ([place]) Mother Family Medical History: CVA/TIA, Myocardial Infarction ([place]) Medications and Allergies Home Medications Medication Instructions Recorded Confirmed Type Acetaminophen [Tylenol Extra 500 mg PO QID 04/30/22 04/30/22 History Strength] Allergies Allergy/AdvReac Type Severity Reaction Status Date / Time No Known Allergies Allergy Verified 04/30/22 15:37 Physical Exam Vitals: Vital Signs Temp Pulse Pulse Resp BP BP BP 05/01/22 17:10 97.8 F 79 18 127/68 05/01/22 14:22 97.7 F 84 18 135/82 05/01/22 09:11 82 16 122/78 05/01/22 04:00 81 18 136/69 05/01/22 02:00 93 18 04/30/22 23:02 97.9 F 86 16 111/63 04/30/22 19:24 87 16 120/70 04/30/22 18:51 87 18 139/93 Pulse Ox 05/01/22 17:10 94 L 05/01/22 14:22 94 L 05/01/22 09:11 99 05/01/22 04:00 96 05/01/22 02:00 04/30/22 23:02 95 04/30/22 19:24 95 04/30/22 18:51 95 Intake and Output 05/01/22 05/01/22 05/01/22 06:59 14:59 22:59 Other: Voiding Method Bedpan # Voids 0 Gen.: No acute distress. HEENT: Mucosa moist. Breast: She has a very extensive large ulcerating left breast mass with necrosis occupying her entire left breast and spreading into her left axilla with associated significant left upper extremity swelling from lymphedema. She also has subcutaneous metastatic lesions scattered in the left chest wall and left upper abdominal wall as well as extending onto the left neck region. Area is nontender. States that it's staying but it does not truly her. Lungs: No respiratory distress. Heart: Regular rate. Abdomen: Soft. Neuro: Alert and oriented 3. Skin: No jaundice. Psych: Appropriate affect. Results CBC & Chem 7: 05/02/22 08:41 05/02/22 08:41 Labs: Abnormal Lab Results - Last 24 Hours (Table) 05/01/22 05/01/22 05/01/22 Range/Units 08:20 08:20 09:10 RBC 3.62 L (4.10-5.20) X 10*6/uL Hgb 11.7 L (12.0-15.0) g/dL MCV 102.8 H (80.0-97.0) fL MCH 32.3 H (27.0-32.0) pg MCHC 31.5 L (32.0-37.0) g/dL RDW 15.5 H (11.5-14.5) % Lymphocytes # 0.73 L (0.90-5.00) X 10*3/uL BUN/Creatinine Ratio 37.50 H (12.00-20.00) Ratio Calcium 8.6 L (8.7-10.3) mg/dL Urine Protein Trace H (Negative) Microbiology - Last 24 Hours (Table) 04/30/22 15:15 Blood Culture - Final Blood 04/30/22 15:53 Gram Stain - Preliminary Axilla - Left Wound Culture - Preliminary 04/30/22 15:53 Anaerobic Culture - Preliminary Axilla - Left CT scan - abdomen: report reviewed CT scan - chest: report reviewed CT Scan - head: report reviewed CT scan - pelvis: report reviewed Venous US: report reviewed Assessment and Plan Assessment: 1. Left breast/axillary breast infected wound 2. Left breast/axillary changes concerning for malignancy 3. Pneumonia 4. Pleural effusion 5. Compression fractures 6. Falls Plan: Ms. Barbosa is a very pleasant 89 yo female with no significant PMH who is here for foul smelling discharge from chronic left breast/axillary wound as well as recurrent falls. Work up concerning for LLL PNA with pleural effusion, multiple compression fractures, infected axillary/breast wound and breast mass encompassing the entire left breast, extending into the left axilla as well as up into the left neck region and left upper abdominal region. She also has a lot of scattered subcutaneous skin nodules that appear to be metastases to the skin throughout her left chest, upper abdomen, and neck and extending into the axilla. Left upper extremity swelling likely due to lymphedema in her left mass is likely due to breast cancer with metastases to the regional skin. Pt will need a biopsy of the breast mass, preferably one of the skin nodules, to assess for malignancy. Will also need thoracentesis for cytology and cultures. Agree with antibiotics for likely superimposed infection of the breast, as well as for possible pneumonia. Will continue to follow pt with you. Discussed with pt and her family at bedside and they are agreeable. All questions answered. Discussed with nursing staff.
--- NOTE | 2022-05-02 23:05 | P.PN ---
Subjective Progress Note Date: 05/02/22 Principal diagnosis: Left breast/axillary area wound and cellulitis Patient is 89 year old female presenting to the hospital with chronic nonhealing wound to her left breast axillary area and some foul-smelling drainage concerning for possible infected left breast is unremarkable. Posterior On today's evaluation and that is 05/02/2022 the patient denies having any fever or any chills the patient is breathing comfortably patient denies any worsening pain to the left breast axillary area no nausea no vomiting no abdominal pain or diarrhea Objective - Vital Signs Vital signs: Vital Signs Temp 97.1 F L 05/02/22 11:14 Pulse 83 05/02/22 11:14 Resp 16 05/02/22 11:14 BP 129/72 05/02/22 11:14 Pulse Ox 94 L 05/02/22 11:14 FiO2 Intake & Output 05/01/22 05/02/22 05/02/22 18:59 06:59 18:59 Intake Total 305 Output Total 250 175 Balance -250 130 Weight 72.575 kg Intake: IV 5 Invasive Line 2 5 Oral 300 Output: Urine 250 175 Other: Voiding Method Indwelling Catheter Indwelling Catheter Indwelling Catheter - Exam GENERAL DESCRIPTION: An elderly female lying in bed in no distress RESPIRATORY SYSTEM: Unlabored breathing , decreased breath sounds at bases HEART: S1 S2 regular rate and rhythm , Left breast/axillary area with wound some foul-smelling ABDOMEN: Soft , no tenderness EXTREMITIES: No edema feet - Labs CBC & Chem 7: 05/02/22 08:41 05/02/22 08:41 Labs: Abnormal Lab Results - Last 24 Hours (Table) 05/02/22 05/02/22 Range/Units 08:41 08:41 RBC 3.54 L (3.80-5.40) m/uL MCV 104.0 H (80.0-100.0) fL Lymphocytes # 0.7 L (1.0-4.8) k/uL Sodium 136 L (137-145) mmol/L BUN 19 H (7-17) mg/dL Glucose 103 H (74-99) mg/dL Calcium 7.9 L (8.4-10.2) mg/dL TSH 6.840 H (0.465-4.680) mIU/L Microbiology - Last 24 Hours (Table) 04/30/22 15:15 Blood Culture Gram Stain - Final Blood Blood Culture - Final Coagulase Negative Staph 04/30/22 15:30 Blood Culture Gram Stain - Preliminary Blood 04/30/22 15:30 Blood Culture - Final Blood 04/30/22 15:53 Gram Stain - Preliminary Axilla - Left Wound Culture - Preliminary Gram Neg Bacilli 04/30/22 15:15 Blood Culture - Final Blood Assessment and Plan (1) Cellulitis Current Visit: Yes Status: Acute Code(s): L03.90 - CELLULITIS, UNSPECIFIED SNOMED Code(s): 898468110 (2) Wound of left breast Current Visit: Yes Status: Acute Code(s): S21.002A - UNSPECIFIED OPEN WOUND OF LEFT BREAST, INITIAL ENCOUNTER SNOMED Code(s): 14349018 Plan: 1patient with a chronic nonhealing wound to the left chest wall and armpit area with concern for possible malignancy as did have hard margins and no significant redness some drainage and foul-smelling possible secondary bacterial infection not entirely excluded. 2patient will benefit from biopsy and surgical debridement 3positive blood culture with staph epi likely skin contamination no need for vancomycin 4-patient to continue with the Zosyn while waiting for the culture to finalize will check currently growing gram-negative
--- NOTE | 2022-05-03 02:29 | PN ---
PROGRESS NOTE DATE OF SERVICE: 05/02/2022 SUBJECTIVE: This 89-year-old woman was admitted with significant indurated left breast mass and ulceration, also had multiple compression fractures. Multiple consultants following the patient closely. The blood pressure is low yesterday. The patient was closely monitored in telemetry. Biopsy of the chronic wound was recommended by Infectious Disease. The patient is on empiric antibiotics. PAST MEDICAL HISTORY: Reviewed. REVIEW OF SYSTEMS: Fourteen-point review is negative as mentioned earlier. CURRENT MEDICATIONS: Heparin, Zosyn doses and rest of medication noted. PHYSICAL EXAMINATION: VITAL SIGNS: Pulse is 78, blood pressure , respirations 16. HEENT: Conjunctivae normal. CARDIOVASCULAR: S1 and S2. RESPIRATIONS: A few scattered rhonchi. ABDOMEN: Soft. NERVOUS SYSTEM: No focal deficits. LABORATORY DATA: Blood cultures, coag-negative staph; and wound culture, gram-negative bacilli. Otherwise, rest of the labs are reviewed. ASSESSMENT: 1. Left breast chronic wound, possibly ulceration with cellulitis with underlying induration, infection, cellulitis, rule out malignancy. 2. Fall and multiple thoracic compression fractures. 3. New onset atrial fibrillation. 4. Hypothyroidism. 5. Multiple medical issues. 6. History of noncompliance. RECOMMENDATIONS: Recommend to continue current medications and symptomatic treatment. Continue antibiotics, symptomatic treatment of the pain. Closely follow with multiple consultants. Hematology/Oncology evaluation is pending at this time. We will also a surgical consultation for possible biopsy and monitoring also. Further recommendations to follow. MMZURIL / MARYN: [id number] /
[2022-05-03] MEDS: PIPERACILLIN-TAZOBACTAM 3.375 GM in SODIUM CHLORIDE 0.9% 100 ML IVPB SCH ×3 (03:15→20:19)
[2022-05-03] MEDS ORDERED: VANCOMYCIN TROUGH DUE 1 EACH MISC MISCELLANE ONE (07:00)
[2022-05-03] MEDS: HEPARIN SODIUM,PORCINE/PF 5,000 UNIT/0.5 ML SYRINGE SQ SCH ×2 (08:34→20:19)
[2022-05-03 11:53] LABS: African American GFR (CKD) >90 (>60 ml/min/1.73 sqM); Anion Gap 3 mmol/L; Blood Urea Nitrogen 16 mg/dL (7-17); Calcium 7.8 mg/dL (8.4-10.2); Carbon Dioxide 27 mmol/L (22-30); Chloride 106 mmol/L (98-107); Glucose 116 mg/dL (74-99); Non-African American GFR(CKD) 80 (>60 ml/min/1.73 sqM); Potassium 4.6 mmol/L (3.5-5.1); Sodium 136 mmol/L (137-145)
[2022-05-03 12:03] LABS: Basophils % (A) 1 %; Eosinophils # (A) 0.1 k/uL (0-0.7); Eosinophils % (A) 2 %; HCT 37.6 % (34.0-46.0); HGB 11.9 gm/dL (11.4-16.0); Hypochromasia Slight; Lymphocytes # (A) 0.6 k/uL (1.0-4.8); Lymphocytes % (A) 12 %; MCHC 31.8 g/dL (31.0-37.0); MCV 103.8 fL (80.0-100.0); Macrocytosis Moderate; Mean Platelet Volume 8.9; Monocytes # (A) 0.3 k/uL (0-1.0); Monocytes % (A) 5 %; Neutrophils # (A) 4.1 k/uL (1.3-7.7); Neutrophils % (A) 78 %; Platelet Count 322 k/uL (150-450); RBC 3.62 m/uL (3.80-5.40); RDW 14.6 % (11.5-15.5); WBC 5.3 k/uL (3.8-10.6)
--- NOTE | 2022-05-03 12:37 | P.CONS ---
History of Present Illness - Reason for Consult Consult date: 05/03/22 wound care - History of Present Illness This is an 89-year-old patient with a open ulceration to the left breast extending to the axilla. Possible cancerous. The patient will undergo a biopsy. Patient's past medical history significant for thyroidectomy, former smoker. Review Of Systems: Constitutional: No fever, no chills, no night sweats. No weight change. No weakness, fatigue or lethargy. No daytime sleepiness. Integumentary:reports wounds, no lesions. No rash or pruritus. No unusual bruising. No change in hair or nails. Physical exam: General Appearance: Alert, cooperative, no distress, appears stated age. Skin: See HPI all other Skin color, texture, tugor normal, no rashes or lesions. Neurologic: Alert oriented x3 Assessment: 1. Nonhealing ulceration with fatty layer exposure possible malignancy to the left breast and axilla Plan: 1.Left breast and aaxilla: Apply triad and cover with absoprtive silver. Change daily. Thank you for the consultation any questions please contact the wound care center DNP note has been reviewed and discussed with Dr. Randolph and the impression and plan of care has been directed as dictated. Past Medical History Past Medical History: Thyroid Disorder History of Any Multi-Drug Resistant Organisms: None Reported Additional Past Surgical History / Comment(s): thyroidectomy 1954 Past Anesthesia/Blood Transfusion Reactions: No Reported Reaction Smoking Status: Former smoker Past Alcohol Use History: Occasional Past Drug Use History: None Reported - Past Family History Father Family Medical History: Myocardial Infarction ([place]) Mother Family Medical History: CVA/TIA, Myocardial Infarction ([place]) Medications and Allergies Home Medications Medication Instructions Recorded Confirmed Type Acetaminophen [Tylenol Extra 500 mg PO QID 04/30/22 04/30/22 History Strength] Allergies Allergy/AdvReac Type Severity Reaction Status Date / Time No Known Allergies Allergy Verified 04/30/22 15:37 Physical Exam Vitals: Vital Signs Temp Pulse Resp BP Pulse Ox 05/03/22 11:20 97.7 F 76 18 125/80 94 L 05/03/22 09:50 97.1 F L 82 16 147/83 93 L 05/03/22 03:52 97.7 F 84 16 144/85 93 L 05/02/22 23:13 97.3 F L 84 16 116/72 95 05/02/22 20:00 97.6 F 78 18 119/77 95 05/02/22 15:46 97.3 F L 79 16 142/55 94 L Intake and Output 05/02/22 05/03/22 05/03/22 22:59 06:59 14:59 Intake Total 481 120 Output Total 575 125 650 Balance -94 -125 -530 Intake: IV 5 Invasive Line 2 5 Oral 476 120 Output: Urine 575 125 650 Other: Voiding Method Indwelling Catheter Indwelling Catheter Indwelling Catheter Results CBC & Chem 7: 05/03/22 11:06 05/03/22 11:06 Labs: Abnormal Lab Results - Last 24 Hours (Table) 05/03/22 05/03/22 Range/Units 11:06 11:06 RBC 3.62 L (3.80-5.40) m/uL MCV 103.8 H (80.0-100.0) fL Lymphocytes # 0.6 L (1.0-4.8) k/uL Sodium 136 L (137-145) mmol/L Glucose 116 H (74-99) mg/dL Calcium 7.8 L (8.4-10.2) mg/dL Microbiology - Last 24 Hours (Table) 04/30/22 15:30 Blood Culture Gram Stain - Preliminary Blood Blood Culture - Preliminary Diphtheroid species 04/30/22 15:15 Blood Culture Gram Stain - Final Blood Blood Culture - Final Coagulase Negative Staph Assessment and Plan (1) Non-pressure chronic ulcer of skin of other sites with fat layer exposed Current Visit: Yes Status: Acute Code(s): L98.492 - NON-PRS CHRONIC ULCER OF SKIN OF SITES W FAT LAYER EXPOSED SNOMED Code(s): 21736334 (2) Wound of left breast Current Visit: Yes Status: Acute Code(s): S21.002A - UNSPECIFIED OPEN WOUND OF LEFT BREAST, INITIAL ENCOUNTER SNOMED Code(s): 30146161
--- NOTE | 2022-05-03 12:44 | P.PN ---
Progress Note - Text Progress Note Date: 05/03/22 Orthopedic spine: History of present illness: Patient is a very pleasant 89-year-old female who is seen and examined at bedside for follow up evaluation of her thoracolumbar spine. She is known to have compression fracture deformities of T12, L1, and L2 with likely acute compression fracture deformity of L1. Currently, her thoracolumbar pain is fairly well controlled. She is resting in bed comfortably. She states she does have some pain towards her lumbosacral spine. She declines to have her thoracolumbar spine examined today. Restriction was written to obtain high-back LSO bracing over the weekend. This brace has not been delivered yet. Patient states she was told it should be delivered and fitted appropriately later this afternoon. Patient denies any lower extremity weakness or radiculopathy. Patient is currently being seen by multiple other medical providers. She does have some breast changes and left lower extremity cellulitis. She is currently on antibiotics per infectious disease. Patient states they are planning for biopsy of left breast mass, which is concerning for malignancy. She is also being treated for pneumonia, thyroid disorder and pleural effusion. Physical exam: Patient is awake, alert, and oriented 3 Vital signs stable Good chest excursion with deep inspiration and expiration Patient declines examination of her thoracolumbar spine. Dorsiflexion, plantarflexion, and extensor hallucis longus positive sustained bilaterally No signs or symptoms of DVT; no calf pain Neurovascularly intact Assessment: Thoracolumbar pain Lumbosacral pain Status post fall T12, L1, and L2 compression fracture deformities L1 likely acute compression fracture deformity Left breast/axillary nonhealing wound/mass concerning for malignancy Pneumonia Pleural effusion Thyroid disorder Plan: 1. After reviewing of imaging, physical examination the patient, and further discussion with the patient, will currently planned to continue with conservati ve treatment at this time. At this time we'll plan for bracing. A prescription has been written and provided to case management for a High back LSO brace. Once this brace is delivered and fitted appropriately, patient should wear this brace while sitting upright at greater than 45, during increase activities, during ambulation. Brace does not have to or while lying in bed or while bathing. Following fitting of this brace, patient is clear for discharge from an orthopedic spine standpoint. Following discharge, patient may follow-up with Lauro Campbell PA-C or Dr. Juice Golden at [facility] in approximately 2-3 weeks for further evaluation. 2. Patient will continue be seen examined by multiple other medical providers for treatment and evaluation in regards to her multiple other medical diagnoses including left breast/axillary nonhealing wound/mass concerning for malignancy, pneumonia, thyroid disorder, and pleural effusion.
[2022-05-03] MEDS: MULTIVITAMINS, THERA 1 EACH TAB PO SCH (12:47)
[2022-05-03] MEDS: THIAMINE 100 MG TAB PO SCH (12:47)
[2022-05-03] MEDS: FOLIC ACID 1 MG TAB PO SCH (12:47)
--- NOTE | 2022-05-03 14:42 | P.GSCN ---
History of Present Illness Consult date: 05/03/22 History of present illness: CHIEF COMPLAINT: Left breast wound HISTORY OF PRESENT ILLNESS: This is a 89-year-old female who presented to the hospital with complaints of left breast wound with drainage and odor. Patient reports that the wound has been there for several months to a year. And within the last month to have been increased drainage and odor. She does report stinging sensation. She denies any weight loss. She's afebrile. She does report that her daughter has a history of breast cancer and had a double mastectomy. Patient has never had a mammogram or breast ultrasound. Oncology and wound care service has been consulted. Patient is also being seen by spinal service regarding multiple compression fractures of the thoracic and lumbar spine. They've ordered a back brace. Surgical service has been consulted for biopsy of the left breast. PAST MEDICAL HISTORY: See below PAST SURGICAL HISTORY: See below MEDICATIONS: See below ALLERGIES: See below SOCIAL HISTORY: No illicit drug use. REVIEW OF SYSTEMS: CONSTITUTIONAL: Denies fever or chills. HEENT: Denies blurred vision, vision changes, or eye pain. Denies hemoptysis CARDIOVASCULAR: Denies chest pain or pressure. RESPIRATORY: No shortness of breath. GASTROINTESTINAL: See HPI for pertinent findings HEMATOLOGIC: Denies bleeding disorders. GENITOURINARY: Denies any blood in urine or increased urinary frequency. SKIN: Denies pruitis. Denies rash. PHYSICAL EXAM: VITAL SIGNS: Reviewed GENERAL: Well-developed in no acute distress. HEENT: No sclera icterus. Extraocular movements grossly intact. Moist buccal mucosa. Head is atraumatic, normocephalic. No nasal drainage. ABDOMEN: Soft. Nondistended. Nontender NEUROLOGIC: Alert and oriented. Cranial nerves II through XII grossly intact. Breast: Large left breast wound on the lateral aspect of the breast into the axilla area. Follow odor. Purulent drainage. Scabbing and skin breakdown noted. Firm and fixed supraclavicular and axillary lymph nodes LABORATORY DATA: WBC is 5.3 Hgb 11.9 platelets 322 Na 136 potassium 4.6 creatinine 0.63 Positive blood culture likely skin contamination Wound culture gram-negative bacilli IMAGING: Computed tomography scan chest abdomen and pelvis thoracic and lumbar mild compression fractures could be acute. Rectal fecal impaction. Consolidation and atelectasis left lower lobe with left pleural effusion. Mild cardiomegaly. Computed tomography scan of the brain cerebral atrophy and chronic small vessel ischemia. No acute intracranial abnormality. No cervical fracture seen. ASSESSMENT: 1. Left breast wound high suspicion of malignancy PLAN: -Further recommendations forthcoming per surgeon regarding biopsy -Agree with oncology consults -Continue with local wound care Thank you for this consultation Physician Senior Engineer note has been reviewed by physician. Signing provider agrees with the documented findings, assessment, and plan of care. Past Medical History Past Medical History: Thyroid Disorder History of Any Multi-Drug Resistant Organisms: None Reported Additional Past Surgical History / Comment(s): thyroidectomy 1954 Past Anesthesia/Blood Transfusion Reactions: No Reported Reaction Smoking Status: Former smoker Past Alcohol Use History: Occasional Past Drug Use History: None Reported - Past Family History Father Family Medical History: Myocardial Infarction ([place]) Mother Family Medical History: CVA/TIA, Myocardial Infarction ([place]) Medications and Allergies Home Medications Medication Instructions Recorded Confirmed Type Acetaminophen [Tylenol Extra 500 mg PO QID 04/30/22 04/30/22 History Strength] Allergies Allergy/AdvReac Type Severity Reaction Status Date / Time No Known Allergies Allergy Verified 04/30/22 15:37 Surgical - Exam Vital Signs Temp Pulse Resp BP Pulse Ox 97.8 F 60 18 104/72 95 04/30/22 14:44 04/30/22 14:44 04/30/22 14:44 04/30/22 14:44 04/30/22 14:44 Results - Labs 05/03/22 11:06 05/03/22 11:06 Microbiology - Last 24 Hours (Table) 04/30/22 15:30 Blood Culture Gram Stain - Preliminary Blood Blood Culture - Preliminary Diphtheroid species 04/30/22 15:15 Blood Culture Gram Stain - Final Blood Blood Culture - Final Coagulase Negative Staph
--- NOTE | 2022-05-03 21:10 | P.PN ---
Subjective Progress Note Date: 05/03/22 Principal diagnosis: fungating chest mass, LUE lymphedema In f/u today pt is eating her lunch. Her LUE is swollen and hard to use, she denies any significant pain in the lt chest wall. She is reporting that the LAD in her lt neck just came on recently and that the chest mass has been there for several YEARS. Objective - Vital Signs Vital signs: Vital Signs Temp 97.7 F 05/03/22 11:20 Pulse 76 05/03/22 11:20 Resp 18 05/03/22 11:20 BP 125/80 05/03/22 11:20 Pulse Ox 94 L 05/03/22 11:20 FiO2 Intake & Output 05/02/22 05/03/22 05/03/22 18:59 06:59 18:59 Intake Total 1322 240 240 Output Total 1675 125 650 Balance -353 115 -410 Intake: IV 10 Invasive Line 2 10 Oral 1312 240 240 Output: Urine 1675 125 650 Other: Voiding Method Indwelling Catheter Indwelling Catheter Indwelling Catheter - Constitutional General appearance: Present: average body habitus, cooperative, no acute d istress - EENT Eyes: Present: anicteric sclerae, EOMI ENT: Present: hearing grossly normal - Neck Neck: Present: lymphadenopathy (hard, fixed, left neck, feels like several nodes) - Respiratory Details: congested cough, rales, clear somewhat after cough - Cardiovascular Rhythm: regular (radial, 2+) - Integumentary Integumentary Comment(s): left chest wall, axilla fungating mass noted - Neurologic Neurologic: Present: CNII-XII intact (grossly) - Musculoskeletal Musculoskeletal: Present: generalized weakness - Psychiatric Psychiatric: Present: A&O x's 3, appropriate affect, intact judgment & insight - Labs CBC & Chem 7: 05/03/22 11:06 05/03/22 11:06 Labs: Abnormal Lab Results - Last 24 Hours (Table) 05/03/22 05/03/22 Range/Units 11:06 11:06 RBC 3.62 L (3.80-5.40) m/uL MCV 103.8 H (80.0-100.0) fL Lymphocytes # 0.6 L (1.0-4.8) k/uL Sodium 136 L (137-145) mmol/L Glucose 116 H (74-99) mg/dL Calcium 7.8 L (8.4-10.2) mg/dL Microbiology - Last 24 Hours (Table) 04/30/22 15:30 Blood Culture Gram Stain - Preliminary Blood Blood Culture - Preliminary Diphtheroid species 04/30/22 15:15 Blood Culture Gram Stain - Final Blood Blood Culture - Final Coagulase Negative Staph Assessment and Plan (1) Lumbar compression fracture Current Visit: Yes Status: Acute Priority: High Code(s): S32.000A - WEDGE COMPRESSION FRACTURE OF UNSP LUMBAR VERTEBRA, INIT SNOMED Code(s): 036270604 (2) Wound of left breast Current Visit: Yes Status: Acute Priority: High Code(s): S21.002A - UNSPECIFIED OPEN WOUND OF LEFT BREAST, INITIAL ENCOUNTER SNOMED Code(s): 42259947 Plan: NM bone scan ordered to further assess suspected compression fractures to evaluate if they are metastatic disease Pt is agreeable to biopsy, pending Surgical consult. We discussed that highly likely this is breast cancer. It is most likely slower growing based on her report that it has been present for several years. It is reasonable to biopsy and obtain hormone receptor status. If positive, pt could qualify for AI therapy, which could control the disease for some time without serious side effects and good overall tolerability. It could alleviate some symptoms. Discussed case briefly with wound care. Asked if the LUE could be gently wrapped to aid in reducing some of the lymphedema.
[2022-05-04] MEDS: PIPERACILLIN-TAZOBACTAM 3.375 GM in SODIUM CHLORIDE 0.9% 100 ML IVPB SCH ×3 (04:09→20:38)
[2022-05-04 08:21] LABS: Basophils % (A) 1 %; Eosinophils # (A) 0.2 k/uL (0-0.7); Eosinophils % (A) 3 %; HGB 11.9 gm/dL (11.4-16.0); Hypochromasia Slight; Lymphocytes # (A) 0.9 k/uL (1.0-4.8); Lymphocytes % (A) 17 %; MCH 32.7 pg (25.0-35.0); MCHC 31.4 g/dL (31.0-37.0); MCV 104.3 fL (80.0-100.0); Macrocytosis Moderate; Mean Platelet Volume 8.2; Monocytes # (A) 0.4 k/uL (0-1.0); Monocytes % (A) 7 %; Neutrophils # (A) 3.9 k/uL (1.3-7.7); Neutrophils % (A) 69 %; Platelet Count 325 k/uL (150-450); RBC 3.65 m/uL (3.80-5.40); RDW 14.6 % (11.5-15.5); WBC 5.6 k/uL (3.8-10.6)
[2022-05-04 08:31] LABS: African American GFR (CKD) >90 (>60 ml/min/1.73 sqM); Anion Gap 3 mmol/L; Blood Urea Nitrogen 13 mg/dL (7-17); Carbon Dioxide 27 mmol/L (22-30); Chloride 107 mmol/L (98-107); Glucose 87 mg/dL (74-99); Non-African American GFR(CKD) 79 (>60 ml/min/1.73 sqM); Potassium 4.6 mmol/L (3.5-5.1); Sodium 137 mmol/L (137-145)
[2022-05-04] MEDS: HEPARIN SODIUM,PORCINE/PF 5,000 UNIT/0.5 ML SYRINGE SQ SCH ×2 (09:39→20:38)
[2022-05-04] MEDS: HYDROPHILIC CREAM 180 GM TUBE TOPICAL SCH (09:39)
[2022-05-04] MEDS ORDERED: bisacodyL 10 MG SUPP RECTAL PRN (12:30)
[2022-05-04] MEDS ORDERED: polyethylene glycoL 3350 17 GM POWD.PACK PO PRN (12:30)
--- NOTE | 2022-05-04 12:35 | P.PN ---
Subjective Progress Note Date: 05/04/22 CHIEF COMPLAINT: Left breast mass HISTORY OF PRESENT ILLNESS: Patient is sitting up at bedside chair. She reports her pain is controlled. She scheduled for bone scan today. She has been evaluated by oncology. She also has a patch brace for her spinal fractures. Afebrile. WBC 5.6 Hgb 11.9 platelets 325 Na137 potassium 4.6 creatinine 0.64 Patient seen and examined with Dr. Clark PHYSICAL EXAM: VITAL SIGNS: Reviewed. GENERAL: Well-developed in no acute distress. HEENT: No sclera icterus. Extraocular movements grossly intact. Moist buccal mucosa. Head is atraumatic, normocephalic. ABDOMEN: Soft. Nondistended. Nontender. NEUROLOGIC: Alert and oriented. Cranial nerves II through XII grossly intact. Breast: Large left breast wound on the lateral aspect of the breast into the axilla area. Foul odor. Purulent drainage. Scabbing and skin breakdown noted. Firm and fixed supraclavicular and axillary lymph nodes ASSESSMENT: 1. Left breast mass with high suspicion of malignancy PLAN: -Patient scheduled for left breast mass biopsy tomorrow at bedside with Dr. clark -Continue oncology workup -Continue supportive care -Continue local wound care Physician Cpc note has been reviewed by physician. Signing provider agrees with the documented findings, assessment, and plan of care. Objective - Vital Signs Vital signs: Vital Signs Temp 97.8 F 05/04/22 09:34 Pulse 77 05/04/22 09:34 Resp 15 05/04/22 09:34 BP 133/73 05/04/22 09:34 Pulse Ox 94 L 05/04/22 09:34 FiO2 Intake & Output 05/03/22 05/04/22 05/04/22 18:59 06:59 18:59 Intake Total 600 240 80 Output Total 650 1250 Balance -50 -1010 80 Intake: Oral 600 240 80 Output: Urine 650 1250 Other: Voiding Method Indwelling Catheter Indwelling Catheter - Labs CBC & Chem 7: 05/04/22 07:11 05/04/22 07:11 Labs: Abnormal Lab Results - Last 24 Hours (Table) 05/03/22 05/03/22 05/04/22 Range/Units 11:06 11:06 07:11 RBC 3.62 L 3.65 L (3.80-5.40) m/uL MCV 103.8 H 104.3 H (80.0-100.0) fL Lymphocytes # 0.6 L 0.9 L (1.0-4.8) k/uL Sodium 136 L (137-145) mmol/L Glucose 116 H (74-99) mg/dL Calcium 7.8 L (8.4-10.2) mg/dL 05/04/22 Range/Units 07:11 RBC (3.80-5.40) m/uL MCV (80.0-100.0) fL Lymphocytes # (1.0-4.8) k/uL Sodium (137-145) mmol/L Glucose (74-99) mg/dL Calcium 8.0 L (8.4-10.2) mg/dL Microbiology - Last 24 Hours (Table) 04/30/22 15:53 Anaerobic Culture - Final Axilla - Left Anaerobic Gm Negative Bacilli 04/30/22 15:53 Gram Stain - Final Axilla - Left Wound Culture - Final Acinetobacter estee/haemol Enterobacter cloacae 04/30/22 15:30 Blood Culture Gram Stain - Preliminary Blood Blood Culture - Preliminary Diphtheroid species
--- NOTE | 2022-05-04 12:42 | P.PN ---
Progress Note - Text Progress Note Date: 05/04/22 Orthopedic spine: History of present illness: Patient is a very pleasant 89-year-old female who is seen and examined at bedside for follow up evaluation of her thoracolumbar spine. She is known to have compression fracture deformities of T12, L1, and L2 with likely acute compression fracture deformity of L1. Currently, her thoracolumbar pain is fairly well controlled. She is resting in bedside chair comfortably. She states she does have some pain towards her lumbosacral spine. Since being seen and examined yesterday, a high-back LSO bracing is delivered and fitted appropriately. She currently has his brace intact. The brace does fit comfortably. She is not currently complaining of significant pain at her thoracolumbar spine. Patient denies any lower extremity weakness or radiculopathy. Patient is currently being seen by multiple other medical providers. She does have some breast changes and left lower extremity cellulitis. She is currently on antibiotics per infectious disease. Patient states they are planning for biopsy of left breast mass, which is concerning for malignancy. She is being seen by oncology. She is also being treated for pneumonia, thyroid disorder and pleural effusion. Physical exam: Patient is awake, alert, and oriented 3 Vital signs stable Good chest excursion with deep inspiration and expiration Patient currently sitting comfortably in a bedside chair with her LSO brace intact Dorsiflexion, plantarflexion, and extensor hallucis longus positive sustained bilaterally No signs or symptoms of DVT; no calf pain Neurovascularly intact Assessment: Thoracolumbar pain Lumbosacral pain Status post fall T12, L1, and L2 compression fracture deformities L1 likely acute compression fracture deformity Left breast/axillary nonhealing wound/mass concerning for malignancy Pneumonia Pleural effusion Thyroid disorder Plan: 1. We will continue with our plan as set forth yesterday. After reviewing of imaging, physical examination the patient, and further discussion with the patient, will currently planned to continue with conservative treatment at this time. At this time we'll plan for bracing. A prescription has been written and provided to case management for a High back LSO brace. This brace was delivered and fitted appropriately yesterday. The patient should wear this brace while sitting upright at greater than 45, during increase activities, during ambulation. Brace does not have to or while lying in bed or while bathing. Patient is clear for discharge from an orthopedic spine standpoint. Following discharge, patient may follow-up with Lauro Campbell PA-C or Dr. Juice Golden at [facility] in approximately 2-3 weeks for further evaluation. 2. Patient will continue be seen examined by multiple other medical providers for treatment and evaluation in regards to her multiple other medical diagnoses including left breast/axillary nonhealing wound/mass concerning for malignancy, pneumonia, thyroid disorder, and pleural effusion.
[2022-05-04] MEDS: FOLIC ACID 1 MG TAB PO SCH (13:56)
[2022-05-04] MEDS: MULTIVITAMINS, THERA 1 EACH TAB PO SCH (13:56)
[2022-05-04] MEDS: THIAMINE 100 MG TAB PO SCH (13:59)
[2022-05-04] MEDS: SENNOSIDES 8.6 MG TAB PO SCH ×2 (13:59→20:38)
--- NOTE | 2022-05-04 14:22 | NM ---
EXAMINATION TYPE: NM bone scan whole body DATE OF EXAM: 05/04/2022 COMPARISON: 04/30/2022 CT chest abdomen and pelvis HISTORY: Pain Delayed whole-body scanning was performed following the injection of 21.1 mCi Tc 99m MDP. Images acq uired 5 hours post injection. FINDINGS: There is a scoliosis noted. There is increased uptake corresponding to the L1, L2 and T12 superior en dplate fracture suggesting recent fractures. Abnormal uptake involving the bilateral rib cage suggests previous trauma. Moderate uptake seen in th e mid to lower thoracic spine likely is degenerative. Kyphosis of the spine noted. Faint uptake seen involving the hips likely postarthritic. IMPRESSION: 1. Abnormal uptake T12, L1 and L2 as can concordant with the CT findings of compression fractures. 2. Findings suggest remote trauma to the rib cage correlate clinically. 3. Abnormal uptake involving the mid and lower thoracic spine and there is likely degenerative.
[2022-05-05] MEDS: PIPERACILLIN-TAZOBACTAM 3.375 GM in SODIUM CHLORIDE 0.9% 100 ML IVPB SCH ×3 (04:06→20:47)
[2022-05-05] MEDS: HEPARIN SODIUM,PORCINE/PF 5,000 UNIT/0.5 ML SYRINGE SQ SCH ×2 (08:45→20:46)
[2022-05-05] MEDS: HYDROPHILIC CREAM 180 GM TUBE TOPICAL SCH (08:45)
[2022-05-05] MEDS: SENNOSIDES 8.6 MG TAB PO SCH ×2 (08:45→20:46)
[2022-05-05] MEDS: THIAMINE 100 MG TAB PO SCH (12:25)
[2022-05-05] MEDS: MULTIVITAMINS, THERA 1 EACH TAB PO SCH (12:25)
[2022-05-05] MEDS: FOLIC ACID 1 MG TAB PO SCH (12:25)
--- NOTE | 2022-05-05 12:32 | P.PN ---
Subjective Progress Note Date: 05/03/22 Principal diagnosis: Left breast/axillary area wound and cellulitis Patient is 89 year old female presenting to the hospital with chronic nonhealing wound to her left breast axillary area and some foul-smelling drainage concerning for possible infected left breast is unremarkable. Posterior On today's evaluation and that is 05/03/2022 patient remains to be afebrile pa tient is breathing comfortably denies any worsening pain to the left chest wall/axillary area no nausea vomiting no abdominal pain and no diarrhea Objective - Vital Signs Vital signs: Vital Signs Temp 97.7 F 05/03/22 11:20 Pulse 76 05/03/22 11:20 Resp 18 05/03/22 11:20 BP 125/80 05/03/22 11:20 Pulse Ox 94 L 05/03/22 11:20 FiO2 Intake & Output 05/02/22 05/03/22 05/03/22 18:59 06:59 18:59 Intake Total 1322 240 120 Output Total 1675 125 650 Balance -353 115 -530 Intake: IV 10 Invasive Line 2 10 Oral 1312 240 120 Output: Urine 1675 125 650 Other: Voiding Method Indwelling Catheter Indwelling Catheter Indwelling Catheter - Exam GENERAL DESCRIPTION: An elderly female lying in bed in no distress RESPIRATORY SYSTEM: Unlabored breathing , decreased breath sounds at bases HEART: S1 S2 regular rate and rhythm , Left breast/axillary area with wound some foul-smelling ABDOMEN: Soft , no tenderness EXTREMITIES: No edema feet - Labs CBC & Chem 7: 05/04/22 07:11 05/04/22 07:11 Labs: Abnormal Lab Results - Last 24 Hours (Table) 05/03/22 05/03/22 Range/Units 11:06 11:06 RBC 3.62 L (3.80-5.40) m/uL MCV 103.8 H (80.0-100.0) fL Lymphocytes # 0.6 L (1.0-4.8) k/uL Sodium 136 L (137-145) mmol/L Glucose 116 H (74-99) mg/dL Calcium 7.8 L (8.4-10.2) mg/dL Microbiology - Last 24 Hours (Table) 04/30/22 15:30 Blood Culture Gram Stain - Preliminary Blood Blood Culture - Preliminary Diphtheroid species 04/30/22 15:15 Blood Culture Gram Stain - Final Blood Blood Culture - Final Coagulase Negative Staph Assessment and Plan (1) Cellulitis Current Visit: Yes Status: Acute Code(s): L03.90 - CELLULITIS, UNSPECIFIED SNOMED Code(s): 229451802 (2) Wound of left breast Current Visit: Yes Status: Acute Priority: High Code(s): S21.002A - UNSPECIFIED OPEN WOUND OF LEFT BREAST, INITIAL ENCOUNTER SNOMED Code(s): 08352003 Plan: 1patient with a chronic nonhealing wound to the left chest wall and armpit area with concern for possible malignancy as did have hard margins and no significant redness some drainage and foul-smelling possible secondary bacterial infection not entirely excluded. 2patient will benefit from biopsy and surgical debridement 3positive blood culture with Diphtheroid likely skin contamination no need for vancomycin 4-patient Local cultures growing Acinetobacter along with Enterobacter which is resistant to Unasyn and anaerobes 5-Patient to continue with Zosyn and local wound care per the wound care team
--- NOTE | 2022-05-05 12:34 | P.PN ---
Subjective Progress Note Date: 05/04/22 Principal diagnosis: Left breast/axillary area wound and cellulitis Patient is 89 year old female presenting to the hospital with chronic nonhealing wound to her left breast axillary area and some foul-smelling drainage concerning for possible infected left breast is unremarkable. Posterior On today's evaluation and that is 05/04/2022 the patient denies any fever or any chills, the patient is breathing comfortably on room air patient pain to the left chest wall breast area wound is currently controlled denies any nausea vomiting no abdominal pain or diarrhea Objective - Vital Signs Vital signs: Vital Signs Temp 97.8 F 05/04/22 09:34 Pulse 77 05/04/22 09:34 Resp 15 05/04/22 09:34 BP 133/73 05/04/22 09:34 Pulse Ox 94 L 05/04/22 09:34 FiO2 Intake & Output 05/03/22 05/04/22 05/04/22 18:59 06:59 18:59 Intake Total 600 240 80 Output Total 650 1250 Balance -50 -1010 80 Intake: Oral 600 240 80 Output: Urine 650 1250 Other: Voiding Method Indwelling Catheter Indwelling Catheter - Exam GENERAL DESCRIPTION: An elderly female lying in bed in no distress RESPIRATORY SYSTEM: Unlabored breathing , decreased breath sounds at bases HEART: S1 S2 regular rate and rhythm , Left breast/axillary area with wound some foul-smelling ABDOMEN: Soft , no tenderness EXTREMITIES: No edema feet - Labs CBC & Chem 7: 05/04/22 07:11 05/04/22 07:11 Labs: Abnormal Lab Results - Last 24 Hours (Table) 05/04/22 05/04/22 Range/Units 07:11 07:11 RBC 3.65 L (3.80-5.40) m/uL MCV 104.3 H (80.0-100.0) fL Lymphocytes # 0.9 L (1.0-4.8) k/uL Calcium 8.0 L (8.4-10.2) mg/dL Microbiology - Last 24 Hours (Table) 04/30/22 15:30 Blood Culture Gram Stain - Final Blood Blood Culture - Final Diphtheroid species 04/30/22 15:53 Anaerobic Culture - Final Axilla - Left Anaerobic Gm Negative Bacilli 04/30/22 15:53 Gram Stain - Final Axilla - Left Wound Culture - Final Acinetobacter estee/haemol Enterobacter cloacae Assessment and Plan (1) Cellulitis Current Visit: Yes Status: Acute Code(s): L03.90 - CELLULITIS, UNSPECIFIED SNOMED Code(s): 856463863 (2) Wound of left breast Current Visit: Yes Status: Acute Priority: High Code(s): S21.002A - UNSPECIFIED OPEN WOUND OF LEFT BREAST, INITIAL ENCOUNTER SNOMED Code(s): 06460992 Plan: 1patient with a chronic nonhealing wound to the left chest wall and armpit area with concern for possible malignancy as did have hard margins and no significant redness some drainage and foul-smelling possible secondary bacterial infection not entirely excluded. 2patient Is scheduled for biopsy of the left breast mass per surgery for tomorrow morning 3positive blood culture with Diphtheroid likely skin contamination no need for vancomycin 4-patient Local cultures growing Acinetobacter along with Enterobacter which is resistant to Unasyn and anaerobes 5-Patient will continue with Zosyn while inpatient and hopefully transition to oral antibiotic on discharge Time with Patient: Less than 30
--- NOTE | 2022-05-05 13:59 | P.PN ---
Subjective Progress Note Date: 05/05/22 CHIEF COMPLAINT: Left breast mass HISTORY OF PRESENT ILLNESS: Patient is sitting up at bedside chair. She reports her pain is controlled. Patient had bone scan completed showing abnormal uptake T12-L1 and L2 coronary with the CT findings of compression fractures. Findings suggest remote trauma to rib cage correlate clinically. Abnormal uptake in the mid and lower thoracic spine likely degenerative. Patient had bedside left breast punch biopsy completed by Dr. clark today. Afebrile Patient seen and examined with Dr. Clark PHYSICAL EXAM: VITAL SIGNS: Reviewed. GENERAL: Well-developed in no acute distress. HEENT: No sclera icterus. Extraocular movements grossly intact. Moist buccal mucosa. Head is atraumatic, normocephalic. ABDOMEN: Soft. Nondistended. Nontender. NEUROLOGIC: Alert and oriented. Cranial nerves II through XII grossly intact. Breast: Large left breast wound on the lateral aspect of the breast into the axilla area. Foul odor. Purulent drainage. Scabbing and skin breakdown noted. Firm and fixed supraclavicular and axillary lymph nodes Back has skin breakdown ASSESSMENT: 1. Left breast mass with high suspicion of malignancy status post punch biopsy result PLAN: -Follow up on biopsy result -ok for discharge from surgical standpoint when medically clear -Continue oncology workup -Continue supportive care -Continue local wound care -Apply duoderm to her to left back skin break down Physician [employer] Attendant note has been reviewed by physician. Signing provider agrees with the documented findings, assessment, and plan of care. Objective - Vital Signs Vital signs: Vital Signs Temp 97.8 F 05/05/22 12:28 Pulse 78 05/05/22 12:28 Resp 16 05/05/22 12:28 BP 143/75 05/05/22 12:28 Pulse Ox 94 L 05/05/22 12:28 FiO2 Intake & Output 05/04/22 05/05/22 05/05/22 18:59 06:59 18:59 Intake Total 230 240 240 Output Total 650 200 350 Balance -420 40 -110 Intake: Oral 230 240 240 Output: Urine 650 200 350 Other: Voiding Method Indwelling Catheter Indwelling Catheter - Labs CBC & Chem 7: 05/04/22 07:11 05/04/22 07:11 Labs: Microbiology - Last 24 Hours (Table) 04/30/22 15:30 Blood Culture Gram Stain - Final Blood Blood Culture - Final Diphtheroid species
--- NOTE | 2022-05-05 21:54 | P.PN ---
Subjective Progress Note Date: 05/03/22 Patient is a 89-year-old female admitted to the hospital significant indurated left breast mass and ulceration and had multiple compression fractures. Patient is being followed by ID and general surgery and is empiric antibiotics. Bone biopsy was recommended by ID. 05/03/2022 Patient is currently resting in the bed. Awake alert and oriented. No complaints of worsening chest wall pain. No complaints of shortness of breath. No nausea vomiting abdominal pain or diarrhea. Left upper extremity is swollen. Oncology is highly suspicious for breast cancer. Afebrile. Laboratory data showed WBC 5.3 hemoglobin 11.9 and platelets 322 Sodium 136 potassium 4.6 chloride 106 bicarb is 27 BUN 16 and creatinine 0.60 and calcium 7.8. Cultures showing anaerobic gram-negative bacilli, Acinetobacter Kramer and Enterobacter cloacae. Patient is being continued antibiotics in the form of Zosyn. Current medications reviewed. Objective - Vital Signs Vital signs: Vital Signs Temp 97.7 F 05/03/22 11:20 Pulse 76 05/03/22 11:20 Resp 18 05/03/22 11:20 BP 125/80 05/03/22 11:20 Pulse Ox 94 L 05/03/22 11:20 FiO2 Intake & Output 05/02/22 05/03/22 05/03/22 18:59 06:59 18:59 Intake Total 1322 240 240 Output Total 1675 125 650 Balance -353 115 -410 Intake: IV 10 Invasive Line 2 10 Oral 1312 240 240 Output: Urine 1675 125 650 Other: Voiding Method Indwelling Catheter Indwelling Catheter Indwelling Catheter - Exam PHYSICAL EXAMINATION: Patient is lying in the bed comfortably, no acute distress, awake alert and oriented.. HEENT: Normocephalic. Neck is supple. Pupils reactive. Nostrils clear. Oral cavity is moist. Neck reveals no JVD, carotid bruits, or thyromegaly. CHEST EXAMINATION: Trachea is central. Symmetrical expansion. Lung pierre clear to auscultation and percussion. Left anterior chest wall wound and axillary area is bandaged. CARDIAC: Normal S1, S2 with no gallops. No murmurs ABDOMEN: Soft. Bowel sounds normal. No organomegaly. No abdominal bruits. Extremities: reveal no edema. No clubbing or cyanosis Neurologically awake, alert, oriented x3 with well-coordinated movements. No focal deficits noted Skin: No rash or skin lesions. Psychiatric: Cooperative. Nonsuicidal Musculoskeletal: No joint swelling or deformity. Normal range of motion. - Labs CBC & Chem 7: 05/04/22 07:11 05/04/22 07:11 Labs: Abnormal Lab Results - Last 24 Hours (Table) 05/03/22 05/03/22 Range/Units 11:06 11:06 RBC 3.62 L (3.80-5.40) m/uL MCV 103.8 H (80.0-100.0) fL Lymphocytes # 0.6 L (1.0-4.8) k/uL Sodium 136 L (137-145) mmol/L Glucose 116 H (74-99) mg/dL Calcium 7.8 L (8.4-10.2) mg/dL Microbiology - Last 24 Hours (Table) 04/30/22 15:30 Blood Culture Gram Stain - Preliminary Blood Blood Culture - Preliminary Diphtheroid species 04/30/22 15:15 Blood Culture Gram Stain - Final Blood Blood Culture - Final Coagulase Negative Staph Assessment and Plan Assessment: Chronic nonhealing left chest wall wound. Suspicious for Breast Malignancy. Lumbar compression fractures. History of thyroidectomy Prior history of smoking DVT prophylaxis Plan: Patient does have wound on the left breast and axillary lesion highly suspicious for malignancy and bacterial infection ID recommends biopsy. General surgery was consulted. Bone scan was also ordered for possible metastatic disease. ID and oncology is on board. Continue antibiotics in the form of Zosyn. Follow-up closely. Prognosis is guarded at this time.. Time with Patient: Greater than 30
--- NOTE | 2022-05-05 21:55 | P.PN ---
Subjective Progress Note Date: 05/04/22 Patient is a 89-year-old female admitted to the hospital significant indurated left breast mass and ulceration and had multiple compression fractures. Patient is being followed by ID and general surgery and is empiric antibiotics. Bone biopsy was recommended by ID. 05/03/2022 Patient is currently resting in the bed. Awake alert and oriented. No complaints of worsening chest wall pain. No complaints of shortness of breath. No nausea vomiting abdominal pain or diarrhea. Left upper extremity is swollen. Oncology is highly suspicious for breast cancer. Afebrile. Laboratory data showed WBC 5.3 hemoglobin 11.9 and platelets 322 Sodium 136 potassium 4.6 chloride 106 bicarb is 27 BUN 16 and creatinine 0.60 and calcium 7.8. Cultures showing anaerobic gram-negative bacilli, Acinetobacter Kramer and Enterobacter cloacae. Patient is being continued antibiotics in the form of Zosyn. 05/04/2022 Patient is currently resting in bed. Pain is controlled. No complaints of fever or chills. Patient is scheduled for bone marrow biopsy today. Yesterday she was placed on back brace due to compression fractures. Laboratory data reviewed. Patient is scheduled for bedside biopsy tomorrow by general s david. Current medications reviewed. Objective - Vital Signs Vital signs: Vital Signs Temp 97.6 F 05/05/22 19:38 Pulse 75 05/05/22 19:38 Resp 16 05/05/22 19:38 BP 135/67 05/05/22 19:38 Pulse Ox 94 L 05/05/22 19:38 FiO2 Intake & Output 05/05/22 05/05/22 05/06/22 06:59 18:59 06:59 Intake Total 240 240 Output Total 200 350 Balance 40 -110 Weight 72.575 kg Intake: Oral 240 240 Output: Urine 200 350 Other: Voiding Method Indwelling Catheter Indwelling Catheter # Bowel Movements 1 - Exam PHYSICAL EXAMINATION: Patient is lying in the bed comfortably, no acute distress, awake alert and oriented.. HEENT: Normocephalic. Neck is supple. Pupils reactive. Nostrils clear. Oral cavity is moist. Neck reveals no JVD, carotid bruits, or thyromegaly. CHEST EXAMINATION: Trachea is central. Symmetrical expansion. Lung pierre clear to auscultation and percussion. Left anterior chest wall wound and axillary area is bandaged. CARDIAC: Normal S1, S2 with no gallops. No murmurs ABDOMEN: Soft. Bowel sounds normal. No organomegaly. No abdominal bruits. Extremities: reveal no edema. No clubbing or cyanosis Neurologically awake, alert, oriented x3 with well-coordinated movements. No focal deficits noted Skin: No rash or skin lesions. Psychiatric: Cooperative. Nonsuicidal Musculoskeletal: No joint swelling or deformity. Normal range of motion. - Labs CBC & Chem 7: 05/04/22 07:11 05/04/22 07:11 Assessment and Plan Assessment: Chronic nonhealing left chest wall wound. Suspicious for Breast Malignancy. Lumbar compression fractures. History of thyroidectomy Prior history of smoking DVT prophylaxis Plan: Patient does have wound on the left breast and axillary lesion highly suspicious for malignancy and bacterial infection ID recommends biopsy. General surgery was consulted. Bone scan today for possible metastatic disease. ID and oncology is on board. Continue antibiotics in the form of Zosyn. Follow-up closely. Prognosis is guarded at this time.. Time with Patient: Greater than 30
--- NOTE | 2022-05-05 22:34 | P.PN ---
Subjective Progress Note Date: 05/05/22 Patient is a 89-year-old female admitted to the hospital significant indurated left breast mass and ulceration and had multiple compression fractures. Patient is being followed by ID and general surgery and is empiric antibiotics. Bone biopsy was recommended by ID. 05/03/2022 Patient is currently resting in the bed. Awake alert and oriented. No complaints of worsening chest wall pain. No complaints of shortness of breath. No nausea vomiting abdominal pain or diarrhea. Left upper extremity is swollen. Oncology is highly suspicious for breast cancer. Afebrile. Laboratory data showed WBC 5.3 hemoglobin 11.9 and platelets 322 Sodium 136 potassium 4.6 chloride 106 bicarb is 27 BUN 16 and creatinine 0.60 and calcium 7.8. Cultures showing anaerobic gram-negative bacilli, Acinetobacter Kramer and Enterobacter cloacae. Patient is being continued antibiotics in the form of Zosyn. 05/04/2022 Patient is currently resting in bed. Pain is controlled. No complaints of fever or chills. Patient is scheduled for bone marrow biopsy today. Yesterday she was placed on back brace due to compression fractures. Laboratory data reviewed. Patient is scheduled for bedside biopsy tomorrow by general [facility]. 05/05/2022 Patient is lying in the bed. Awake alert and oriented. Patient had bone scan yesterday showed abnormal uptake T12 and L1 and L2 as can concordant with the CT findings of compression fractures. Findings suggest remote trauma to the ribs is correlate clinically. Abnormal uptake involving the mid and lower thoracic spine and there is likely degenerative. Patient had left breast punch biopsy at bedside by general surgery. Patient otherwise being continued on wound care and antibiotics in the form of Zosyn. ID is on board. Current medications reviewed. Objective - Vital Signs Vital signs: Vital Signs Temp 97.6 F 05/05/22 19:38 Pulse 75 05/05/22 19:38 Resp 16 05/05/22 19:38 BP 135/67 05/05/22 19:38 Pulse Ox 94 L 05/05/22 19:38 FiO2 Intake & Output 05/05/22 05/05/22 05/06/22 06:59 18:59 06:59 Intake Total 240 240 Output Total 200 350 Balance 40 -110 Weight 72.575 kg Intake: Oral 240 240 Output: Urine 200 350 Other: Voiding Method Indwelling Catheter Indwelling Catheter # Bowel Movements 1 - Exam PHYSICAL EXAMINATION: Patient is lying in the bed comfortably, no acute distress, awake alert and oriented.. HEENT: Normocephalic. Neck is supple. Pupils reactive. Nostrils clear. Oral cavity is moist. Neck reveals no JVD, carotid bruits, or thyromegaly. CHEST EXAMINATION: Trachea is central. Symmetrical expansion. Lung pierre clear to auscultation and percussion. Left anterior chest wall wound and axillary area is bandaged. CARDIAC: Normal S1, S2 with no gallops. No murmurs ABDOMEN: Soft. Bowel sounds normal. No organomegaly. No abdominal bruits. Extremities: reveal no edema. No clubbing or cyanosis Neurologically awake, alert, oriented x3 with well-coordinated movements. No focal deficits noted Skin: No rash or skin lesions. Psychiatric: Cooperative. Nonsuicidal Musculoskeletal: No joint swelling or deformity. Normal range of motion. - Labs CBC & Chem 7: 05/04/22 07:11 05/04/22 07:11 Assessment and Plan Assessment: Chronic nonhealing left chest wall wound. Suspicious for Breast Malignancy. Lumbar compression fractures. History of thyroidectomy Prior history of smoking DVT prophylaxis Plan: Patient does have wound on the left breast and axillary lesion highly suspicious for malignancy and bacterial infection Patient is status post punch biopsy of the left breast today at bedside by general surgery. Bone scan today for possible metastatic disease. ID and oncology is on board. Continue antibiotics in the form of Zosyn. Follow-up closely. Prognosis is guarded at this time.. Time with Patient: Greater than 30
[2022-05-06] MEDS: PIPERACILLIN-TAZOBACTAM 3.375 GM in SODIUM CHLORIDE 0.9% 100 ML IVPB SCH ×3 (04:16→20:36)
[2022-05-06 08:36] LABS: African American GFR (CKD) >90 (>60 ml/min/1.73 sqM); Anion Gap 4 mmol/L; Blood Urea Nitrogen 11 mg/dL (7-17); Calcium 8.3 mg/dL (8.4-10.2); Carbon Dioxide 27 mmol/L (22-30); Chloride 106 mmol/L (98-107); Glucose 77 mg/dL (74-99); Non-African American GFR(CKD) 80 (>60 ml/min/1.73 sqM); Sodium 137 mmol/L (137-145)
[2022-05-06 08:38] LABS: Potassium 4.3 mmol/L (3.5-5.1)
[2022-05-06 09:42] LABS: Basophils # (A) 0.1 k/uL (0-0.2); Basophils % (A) 1 %; Eosinophils # (A) 0.3 k/uL (0-0.7); Eosinophils % (A) 5 %; HGB 12.3 gm/dL (11.4-16.0); Hypochromasia Moderate; Lymphocytes # (A) 0.8 k/uL (1.0-4.8); Lymphocytes % (A) 14 %; MCHC 31.5 g/dL (31.0-37.0); MCV 104.6 fL (80.0-100.0); Macrocytosis Moderate; Mean Platelet Volume 9.3; Monocytes # (A) 0.5 k/uL (0-1.0); Monocytes % (A) 9 %; Neutrophils # (A) 3.8 k/uL (1.3-7.7); Neutrophils % (A) 68 %; Platelet Count 303 k/uL (150-450); RBC 3.73 m/uL (3.80-5.40); RDW 14.6 % (11.5-15.5); WBC 5.6 k/uL (3.8-10.6)
[2022-05-06] MEDS: SENNOSIDES 8.6 MG TAB PO SCH ×2 (09:49→20:33)
--- NOTE | 2022-05-06 13:12 | P.PN ---
Subjective Progress Note Date: 05/06/22 CHIEF COMPLAINT: Left breast mass HISTORY OF PRESENT ILLNESS: Patient is sitting in bed. She reports her pain is controlled. Patient is status post left breast punch biopsy at the bedside with Dr. Ramirez on 05/05/22. Patient had mild bleeding from biopsy sites. Afebrile. WBC 5.6 HgB 12.3 platelets 303 sons 137 potassium 4.3 creatinine 0.62 Patient seen and examined with Dr. Ramirez PHYSICAL EXAM: VITAL SIGNS: Reviewed. GENERAL: Well-developed in no acute distress. HEENT: No sclera icterus. Extraocular movements grossly intact. Moist buccal mucosa. Head is atraumatic, normocephalic. ABDOMEN: Soft. Nondistended. Nontender. NEUROLOGIC: Alert and oriented. Cranial nerves II through XII grossly intact. Breast: Large left breast wound on the lateral aspect of the breast into the axilla area. Foul odor. Purulent drainage. Scabbing and skin breakdown noted. Minimal bleeding noted on dressing. Back has skin breakdown ASSESSMENT: 1. Left breast mass with high suspicion of malignancy status post punch biopsy result PLAN: -Follow up on biopsy result -ok for discharge from surgical standpoint when medically clear -Continue oncology workup -Continue supportive care -Continue local wound care -Apply duoderm to her to left back skin break down Physician [employer] note has been reviewed by physician. Signing provider agrees with the documented findings, assessment, and plan of care. Objective - Vital Signs Vital signs: Vital Signs Temp 97.9 F 05/06/22 04:11 Pulse 85 05/06/22 04:11 Resp 16 05/06/22 04:11 BP 136/80 05/06/22 04:11 Pulse Ox 93 L 05/06/22 04:11 FiO2 Intake & Output 05/05/22 05/06/22 05/06/22 18:59 06:59 18:59 Intake Total 240 240 Output Total 350 475 450 Balance -110 -475 -210 Weight 72.575 kg Intake: Oral 240 240 Output: Urine 350 475 450 Other: Voiding Method Indwelling Catheter Indwelling Catheter # Bowel Movements 1 3 - Labs CBC & Chem 7: 05/06/22 06:41 05/06/22 06:41 Labs: Abnormal Lab Results - Last 24 Hours (Table) 05/06/22 05/06/22 Range/Units 06:41 06:41 RBC 3.73 L (3.80-5.40) m/uL MCV 104.6 H (80.0-100.0) fL Lymphocytes # 0.8 L (1.0-4.8) k/uL Calcium 8.3 L (8.4-10.2) mg/dL
[2022-05-06] MEDS: HEPARIN SODIUM,PORCINE/PF 5,000 UNIT/0.5 ML SYRINGE SQ SCH ×2 (13:48→20:37)
[2022-05-06] MEDS: FOLIC ACID 1 MG TAB PO SCH (13:53)
[2022-05-06] MEDS: MULTIVITAMINS, THERA 1 EACH TAB PO SCH (13:53)
[2022-05-06] MEDS: THIAMINE 100 MG TAB PO SCH (13:54)
[2022-05-06] MEDS: HYDROPHILIC CREAM 180 GM TUBE TOPICAL SCH (13:54)
--- NOTE | 2022-05-06 23:26 | P.PN ---
Subjective Progress Note Date: 05/05/22 Principal diagnosis: Left breast/axillary area wound and cellulitis Patient is 89 year old female presenting to the hospital with chronic nonhealing wound to her left breast axillary area and some foul-smelling drainage concerning for possible infected left breast is unremarkable. Posterior On today's evaluation and that is 05/05/2022 the patient remains to be afebrile, the patient is breathing comfortably on room air patient left breast/chest wall pain has slightly decreased intensity no nausea vomiting no abdominal pain no diarrhea Objective - Vital Signs Vital signs: Vital Signs Temp 97.8 F 05/05/22 12:28 Pulse 78 05/05/22 12:28 Resp 16 05/05/22 12:28 BP 143/75 05/05/22 12:28 Pulse Ox 94 L 05/05/22 12:28 FiO2 Intake & Output 05/04/22 05/05/22 05/05/22 18:59 06:59 18:59 Intake Total 230 240 240 Output Total 650 200 350 Balance -420 40 -110 Intake: Oral 230 240 240 Output: Urine 650 200 350 Other: Voiding Method Indwelling Catheter Indwelling Catheter - Exam GENERAL DESCRIPTION: An elderly female lying in bed in no distress RESPIRATORY SYSTEM: Unlabored breathing , decreased breath sounds at bases HEART: S1 S2 regular rate and rhythm , Left breast/axillary area with wound some foul-smelling ABDOMEN: Soft , no tenderness EXTREMITIES: No edema feet - Labs CBC & Chem 7: 05/06/22 06:41 05/06/22 06:41 Labs: Microbiology - Last 24 Hours (Table) 04/30/22 15:30 Blood Culture Gram Stain - Final Blood Blood Culture - Final Diphtheroid species Assessment and Plan (1) Cellulitis Current Visit: Yes Status: Acute Code(s): L03.90 - CELLULITIS, UNSPECIFIED SNOMED Code(s): 720625118 (2) Wound of left breast Current Visit: Yes Status: Acute Priority: High Code(s): S21.002A - UNSPECIFIED OPEN WOUND OF LEFT BREAST, INITIAL ENCOUNTER SNOMED Code(s): 63492691 Plan: 1patient with a chronic nonhealing wound to the left chest wall and armpit area with concern for possible malignancy as did have hard margins and no significant redness some drainage and foul-smelling possible secondary bacterial infection not entirely excluded. 2patient Is scheduled for biopsy of the left breast mass per surgery this afternoon 3positive blood culture with Diphtheroid likely skin contamination no need for vancomycin 4-patient Local cultures growing Acinetobacter along with Enterobacter which is resistant to Unasyn and anaerobes 5-Patient will continue with Zosyn while inpatient Time with Patient: Less than 30
--- NOTE | 2022-05-06 23:28 | P.PN ---
Subjective Progress Note Date: 05/06/22 Principal diagnosis: Left breast/axillary area wound and cellulitis Patient is 89 year old female presenting to the hospital with chronic nonhealing wound to her left breast axillary area and some foul-smelling drainage concerning for possible infected left breast is unremarkable. Posterior On today's evaluation and that is 05/06/2022 patient denies any fever or chills patient is breathing comfortably on room air patient left breast/chest wall pain is currently controlled no nausea vomiting abdominal pain no diarrhea Objective - Vital Signs Vital signs: Vital Signs Temp 97.9 F 05/06/22 04:11 Pulse 85 05/06/22 04:11 Resp 16 05/06/22 04:11 BP 136/80 05/06/22 04:11 Pulse Ox 93 L 05/06/22 04:11 FiO2 Intake & Output 05/05/22 05/06/22 05/06/22 18:59 06:59 18:59 Intake Total 240 598 Output Total 350 475 450 Balance -110 -475 148 Weight 72.575 kg Intake: Oral 240 598 Output: Urine 350 475 450 Other: Voiding Method Indwelling Catheter Indwelling Catheter # Bowel Movements 1 3 - Exam GENERAL DESCRIPTION: An elderly female lying in bed in no distress RESPIRATORY SYSTEM: Unlabored breathing , decreased breath sounds at bases HEART: S1 S2 regular rate and rhythm , Left breast/axillary area with wound some foul-smelling ABDOMEN: Soft , no tenderness EXTREMITIES: No edema feet - Labs CBC & Chem 7: 05/06/22 06:41 05/06/22 06:41 Labs: Abnormal Lab Results - Last 24 Hours (Table) 05/06/22 05/06/22 Range/Units 06:41 06:41 RBC 3.73 L (3.80-5.40) m/uL MCV 104.6 H (80.0-100.0) fL Lymphocytes # 0.8 L (1.0-4.8) k/uL Calcium 8.3 L (8.4-10.2) mg/dL Assessment and Plan (1) Cellulitis Current Visit: Yes Status: Acute Code(s): L03.90 - CELLULITIS, UNSPECIFIED SNOMED Code(s): 331710533 (2) Wound of left breast Current Visit: Yes Status: Acute Priority: High Code(s): S21.002A - UNSPECIFIED OPEN WOUND OF LEFT BREAST, INITIAL ENCOUNTER SNOMED Code(s): 32789140 Plan: 1patient with a chronic nonhealing wound to the left chest wall and armpit area with concern for possible malignancy as did have hard margins and no significant redness some drainage and foul-smelling possible secondary bacterial infection not entirely excluded. 2Patient is status post a biopsy of the left breast mass completed on 05/05/2022 with the patient has tolerated 3positive blood culture with Diphtheroid likely skin contamination no need for vancomycin 4-patient Local cultures growing Acinetobacter along with Enterobacter which is resistant to Unasyn and anaerobes 5-Patient will continue with Zosyn while inpatient However plan is to finish therapy with oral Cipro and Flagyl x10 days on discharge and this was discussed with the SQUARE SHEAR OPERATOR for admitting team Time with Patient: Less than 30
--- NOTE | 2022-05-06 23:58 | P.PN ---
Subjective Progress Note Date: 05/06/22 Principal diagnosis: fungating chest mass, LUE lymphedema In f/u today pt is resting comfortably, persistent LUE swelling, no pain after biopsy. No other c/o on a 10 point ROS Objective - Vital Signs Vital signs: Vital Signs Temp 97.9 F 05/06/22 04:11 Pulse 85 05/06/22 04:11 Resp 16 05/06/22 04:11 BP 136/80 05/06/22 04:11 Pulse Ox 93 L 05/06/22 04:11 FiO2 Intake & Output 05/05/22 05/06/22 05/06/22 18:59 06:59 18:59 Intake Total 240 240 Output Total 350 475 450 Balance -110 -475 -210 Weight 72.575 kg Intake: Oral 240 240 Output: Urine 350 475 450 Other: Voiding Method Indwelling Catheter Indwelling Catheter # Bowel Movements 1 3 - Constitutional General appearance: Present: average body habitus, cooperative, no acute distress - EENT Eyes: Present: anicteric sclerae, EOMI ENT: Present: hearing grossly normal - Neck Neck: Present: lymphadenopathy - Respiratory Respiratory: bilateral: CTA - Cardiovascular Rhythm: regular Heart sounds: normal: S1, S2 - Gastrointestinal General gastrointestinal: Present: normal bowel sounds, soft - Integumentary Integumentary Comment(s): left chest wall fungating mass, into axilla - Neurologic Neurologic: Present: CNII-XII intact - Musculoskeletal Musculoskeletal: Present: generalized weakness - Psychiatric Psychiatric: Present: A&O x's 3, appropriate affect, intact judgment & insight - Labs CBC & Chem 7: 05/06/22 06:41 05/06/22 06:41 Labs: Abnormal Lab Results - Last 24 Hours (Table) 05/06/22 05/06/22 Range/Units 06:41 06:41 RBC 3.73 L (3.80-5.40) m/uL MCV 104.6 H (80.0-100.0) fL Lymphocytes # 0.8 L (1.0-4.8) k/uL Calcium 8.3 L (8.4-10.2) mg/dL - Imaging and Cardiology CT scan - abdomen: report reviewed CT scan - chest: report reviewed CT scan - pelvis: report reviewed NM bone scan report reviewed Assessment and Plan (1) Lumbar compression fracture Current Visit: Yes Status: Acute Priority: High Code(s): S32.000A - WEDGE COMPRESSION FRACTURE OF UNSP LUMBAR VERTEBRA, INIT SNOMED Code(s): 494748168 (2) Wound of left breast Current Visit: Yes Status: Acute Priority: High Code(s): S21.002A - UNSPECIFIED OPEN WOUND OF LEFT BREAST, INITIAL ENCOUNTER SNOMED Code(s): 27731417 Plan: Pt is s/p biopsy, no immediate complications. Pending path NM bone scan did not report any malignant lesions. CT CAP no evidence of metastatic disease . Disease is locally advanced-involving left breast, axilla and there are palpable cervical LN. Most likely breast cancer. Based on how long it has been present and no evidence of metastatic disease highly suspect a hormone positive breast cancer. If positive for this, pt would qualify for AI therapy, which could control the disease for some time without serious side effects and good overall tolerability. It could alleviate some symptoms. Discussed case with IM PAINT STOCK CLERK. Agree with discharge. F/U with Oncologist scheduled. Will review biopsy results and treatment recommendations at that time. All pt questions were answered to her satisfaction and she understands the plan. Attests:I have seen and examined pt, performed H&P, developed impression and plan of care. Discussed with dictator. Agree with documentation, dictated as a scribe.
[2022-05-07 03:40] VITALS: RESP 18
[2022-05-07] MEDS: PIPERACILLIN-TAZOBACTAM 3.375 GM in SODIUM CHLORIDE 0.9% 100 ML IVPB SCH ×2 (04:56→12:52)
--- NOTE | 2022-05-07 05:12 | P.PN ---
Subjective Progress Note Date: 05/06/22 Patient is a 89-year-old female admitted to the hospital significant indurated left breast mass and ulceration and had multiple compression fractures. Patient is being followed by ID and general surgery and is empiric antibiotics. Bone biopsy was recommended by ID. 05/03/2022 Patient is currently resting in the bed. Awake alert and oriented. No complaints of worsening chest wall pain. No complaints of shortness of breath. No nausea vomiting abdominal pain or diarrhea. Left upper extremity is swollen. Oncology is highly suspicious for breast cancer. Afebrile. Laboratory data showed WBC 5.3 hemoglobin 11.9 and platelets 322 Sodium 136 potassium 4.6 chloride 106 bicarb is 27 BUN 16 and creatinine 0.60 and calcium 7.8. Cultures showing anaerobic gram-negative bacilli, Acinetobacter Kramer and Enterobacter cloacae. Patient is being continued antibiotics in the form of Zosyn. 05/04/2022 Patient is currently resting in bed. Pain is controlled. No complaints of fever or chills. Patient is scheduled for bone marrow biopsy today. Yesterday she was placed on back brace due to compression fractures. Laboratory data reviewed. Patient is scheduled for bedside biopsy tomorrow by general surgery. 05/05/2022 Patient is lying in the bed. Awake alert and oriented. Patient had bone scan yesterday showed abnormal uptake T12 and L1 and L2 as can concordant with the CT findings of compression fractures. Findings suggest remote trauma to the ribs is correlate clinically. Abnormal uptake involving the mid and lower thoracic spine and there is likely degenerative. Patient had left breast punch biopsy at bedside by general surgery. Patient otherwise being continued on wound care and antibiotics in the form of Zosyn. ID is on board. 05/06/2022 Patient is seen and evaluated in follow-up with multiple medical consultations including infectious disease, general surgery, oncology following. Patient is continued on IV zosyn for now and will transition to oral on discharge. Patient is post biopsy of the left breast which is pending. Oncology following and disc ussing possible immune therapy. Patient is not looking to seek treatment with chemo/radiation. Patient with significant weakness and working with PT recommending ECF and patient is agreeable. [facility] has accepted pending clearance of consultations. Continue local wound care. Afebrile and denies chest pain or shortness of breath. Patient reports to eating with no nausea or vomiting noted. Review of systems: Constitutional: No reports of fatigue, fever, or chills Cardiovascular: No reports of chest pain or palpitations, reports left chest wall discomfort Respiratory: No reports of shortness of breath or cough GI: No reports of nausea, vomiting, or diarrhea : No reports of dysuria or retention Neurovascular: reports of generalized weakness All medications have been reviewed PHYSICAL EXAMINATION: Patient is sitting up in the bed comfortably, no acute distress, awake alert and oriented.. HEENT: Normocephalic. Neck is supple. Pupils reactive. Nostrils clear. Oral cavity is moist. Neck reveals no JVD, carotid bruits, or thyromegaly. CHEST EXAMINATION: Trachea is central. Symmetrical expansion. Lung pierre clear to auscultation and percussion. Left anterior chest wall wound and axillary area is bandaged. CARDIAC: Normal S1, S2 with no gallops. No murmurs ABDOMEN: Soft. Bowel sounds normal. No organomegaly. No abdominal bruits. Extremities: reveal no edema. No clubbing or cyanosis Neurologically awake, alert, oriented x3 with well-coordinated movements. diffuse weakness Skin: No rash or skin lesions. except for the left breast and chest wall area as mentioned previously Psychiatric: Cooperative. Non-suicidal Musculoskeletal: No joint swelling or deformity. Normal range of motion. Assessment: Chronic non-healing left chest wall wound. Suspicious for Breast Malignancy. post biopsy with results pending Lumbar compression fractures. History of thyroidectomy Prior history of smoking gait dysfunction generalized weakness DVT prophylaxis No code Plan: Patient does have wound on the left breast and axillary lesion highly suspicious for malignancy and bacterial infection Patient is status post punch biopsy of the left breast at bedside by general surgery and results pending. Oncology following and will follow up with patient outpatient. Possible oral immune therapy being discussed. Patient is not seeking any other chemo/radiation treatment at this time. ID and oncology following. Continue antibiotics in the form of Zosyn. Will go home on oral cipro and flagyl for 10 days. Continue local wound care. Case management following and working on ecf and [facility] can accept the patient Prognosis is guarded at this time.. Possible discharge in 24 hours. The impression and plan of care has been dictated by Nurse Jeremy Prac titioner as directed. Dr. Abbey MD I have performed a history and examination and MDM of this patient, discussed the same with the dictator, and agree with the dictator's assessment and plan as written ,documented as a scribe. Based on total visit time, I have performed more than 50% of the visit. Objective - Vital Signs Vital signs: Vital Signs Temp 97.9 F 05/06/22 04:11 Pulse 85 05/06/22 04:11 Resp 16 05/06/22 04:11 BP 136/80 05/06/22 04:11 Pulse Ox 93 L 05/06/22 04:11 FiO2 Intake & Output 05/05/22 05/06/22 05/06/22 18:59 06:59 18:59 Intake Total 240 240 Output Total 350 475 Balance -110 -475 240 Weight 72.575 kg Intake: Oral 240 240 Output: Urine 350 475 Other: Voiding Method Indwelling Catheter Indwelling Catheter # Bowel Movements 1 - Labs CBC & Chem 7: 05/06/22 06:41 05/06/22 06:41 Labs: Abnormal Lab Results - Last 24 Hours (Table) 05/06/22 Range/Units 06:41 Calcium 8.3 L (8.4-10.2) mg/dL
[2022-05-07] MEDS: HEPARIN SODIUM,PORCINE/PF 5,000 UNIT/0.5 ML SYRINGE SQ SCH (08:05)
[2022-05-07] MEDS: SENNOSIDES 8.6 MG TAB PO SCH (08:05)
[2022-05-07] MEDS: HYDROPHILIC CREAM 180 GM TUBE TOPICAL SCH (08:05)
[2022-05-07 08:44] VITALS: BP 139/82; PULSE 79; TEMP 97.5
[2022-05-07 11:38] VITALS: BMI 22.5
[2022-05-07] MEDS: FOLIC ACID 1 MG TAB PO SCH (12:51)
[2022-05-07] MEDS: MULTIVITAMINS, THERA 1 EACH TAB PO SCH (12:51)
[2022-05-07] MEDS: THIAMINE 100 MG TAB PO SCH (12:52)
--- NOTE | 2022-05-07 12:56 | P.PN ---
Subjective Progress Note Date: 05/07/22 CHIEF COMPLAINT: Left breast mass HISTORY OF PRESENT ILLNESS: Patient is sitting in bed. She reports her pain is controlled. Patient is status post left breast punch biopsy at the bedside with Dr. Ramirez on 05/05/22. Biopsy is pending. Afebrile. Patient is being discharged today to [facility]. Patient seen and examined with Dr. Ramirez PHYSICAL EXAM: VITAL SIGNS: Reviewed. GENERAL: Well-developed in no acute distress. HEENT: No sclera icterus. Extraocular movements grossly intact. Moist buccal m ucosa. Head is atraumatic, normocephalic. ABDOMEN: Soft. Nondistended. Nontender. NEUROLOGIC: Alert and oriented. Cranial nerves II through XII grossly intact. Breast: Large left breast wound on the lateral aspect of the breast into the axilla area. Foul odor. Scabbing and skin breakdown noted. Back has skin breakdown ASSESSMENT: 1. Left breast mass with high suspicion of malignancy status post punch biopsy result PLAN: -Follow up with oncology outpatient -ma for discharge from surgical standpoint when medically clear -Continue local wound care Physician Computer Science Intern note has been reviewed by physician. Signing provider agrees with the documented findings, assessment, and plan of care. Objective - Vital Signs Vital signs: Vital Signs Temp 97.5 F L 05/07/22 08:00 Pulse 79 05/07/22 08:00 Resp 18 05/07/22 08:00 BP 139/82 05/07/22 08:00 Pulse Ox 93 L 05/07/22 08:00 FiO2 Intake & Output 05/06/22 05/07/22 05/07/22 18:59 06:59 18:59 Intake Total 838 Output Total 700 600 Balance 138 -600 Weight 59.5 kg 59.5 kg Intake: Oral 838 Output: Urine 700 600 Other: Voiding Method Indwelling Catheter Indwelling Catheter # Bowel Movements 1 - Labs CBC & Chem 7: 05/06/22 06:41 05/06/22 06:41
--- NOTE | 2022-05-07 14:51 | P.DS ---
Providers Date of admission: 04/30/22 19:27 Expected date of discharge: 05/07/22 Attending physician: Sandy Awan Consults: 04/30/22 19:22 Consult Physician Routine Consulting Provider: Jennie Farrar Consult Reason/Comments: chest wound/cellulitis Do you want consulting provider notified?: Yes 04/30/22 22:20 Consult Physician Routine Consulting Provider: Jefry Dahl Consult Reason/Comments: multiple compression fractures thoracic/lumbar, likely subacute Do you want consulting provider notified?: Yes, Notify in am 05/01/22 12:17 Consult Physician Routine Consulting Provider: Carlos Borges Consult Reason/Comments: malignancy Do you want consulting provider notified?: Yes 05/02/22 14:34 Consult Physician Routine Consulting Provider: Joselito Ramirez Consult Reason/Comments: wound biopsy?? Do you want consulting provider notified?: Yes Primary care physician: Stated None Hospital Course: Final diagnosis Chronic non-healing left chest wall wound. Suspicious for Breast Malignancy. post biopsy with results pending Lumbar compression fractures History of thyroidectomy Prior history of smoking gait dysfunction generalized weakness DVT prophylaxis No code Discharge disposition Patient is being discharged in a stable condition with guarded prognosis to [facility] for continued PT/OT therapy. Patient will follow-up with Dr. Aguilera in the outpatient setting upon discharge. Patient is to also follow-up with Dr. Collins in the outpatient setting as scheduled. Total time taken is greater than 35 minutes. Hospital course This is a 89-year-old female who was recently admitted with a left breast mass and ulceration with multiple compression fractures noted on exam evaluated and seen by general surgery along with infectious disease and oncology. Patient had a bedside biopsy performed by general surgery and will be following up outpatient with oncology for the results. The patient is aware and understanding that she is not going to be receiving any type of treatments other than possibly hormone therapy once biopsy results are provided. Patient to continue with local wound care with Triad cream to the site and around it along with absorptive silver and ABD pad daily. Patient did have some resistance to Enterobacter on the cultures along with blood cultures and was seen and evaluated by infectious disease maintained on Zosyn and we'll transition to Cipro and Flagyl for 10 days to complete the course. Patient will need close outpatient follow-up at the wound center. She was significant weakness has been accepted at [facility] and will be going there for continued PT/OT therapy. She was also seen and evaluated by orthopedics with conservative management moving forward and patient will be following up outpatient as needed and also has been using an LSO brace and will continue. Currently no reports of chest pain, shortness of breath, or palpitations. Patient is afebrile. No reports of nausea or vomiting and patient is tolerating diet. Patient will be going to [facility]. Guarded prognosis. Physical exam: Gen: This is a 89-year-old female awake, alert and oriented 3, thin built, elderly appearing female HEENT: Head is atraumatic, normocephalic. Pupils equal, round. Sclerae is anicteric. NECK: Supple. No JVD. No lymphadenopathy. No thyromegaly. LUNGS: Meniscal breath sounds bilaterally with no wheezes or rhonchi. No intercostal retractions. HEART: Regular rate and rhythm. No murmur. Left breast chest wall with surgical dressing that is dry and intact post biopsy ABDOMEN: Soft. Bowel sounds are present. No masses. No tenderness. EXTREMITIES: No pedal edema. No calf tenderness. NEUROLOGICAL: Patient is awake, alert and oriented x3. Cranial nerves 2 through 12 are grossly intact. Diffusely weak Please refer to medication reconciliation sheet for a list of medications. The impression and plan of care has been dictated by Venecia Talley, Nurse Practitioner as directed. Dr. Abbey MD I have performed a history and examination and MDM of this patient, discussed the same with the dictator, and agree with the dictator's assessment and plan as written ,documented as a scribe. Based on total visit time, I have performed more than 50% of the visit. Patient Condition at Discharge: Stable Plan - Discharge Summary Discharge Rx Participant: Yes New Discharge Prescriptions: New Ciprofloxacin HCl [Cipro] 500 mg PO BID 10 Days #20 tab bisacodyL [Dulcolax] 10 mg RECTAL ONCE PRN suppositor PRN Reason: Constipation metroNIDAZOLE [Flagyl] 500 mg PO TID 10 Days #30 tab Folic Acid 1 mg PO DAILY@1200 tab Heparin Sodium,Porcine [Heparin Sodium] 5,000 unit SQ Q12HR #60 each polyethylene glycoL 3350 [Miralax] 17 gm PO DAILY PRN packet PRN Reason: Constipation Multivitamins, Thera [Multivitamin (formulary)] 1 each PO DAILY@1200 tab Sennosides [Senokot] 8.6 mg PO BID #60 tab Thiamine [Vitamin B-1] 100 mg PO DAILY@1200 tab Melatonin 5 mg PO HS PRN #3 tablet PRN Reason: Insomnia Continue Acetaminophen [Tylenol Extra Strength] 500 mg PO QID Discharge Medication List Acetaminophen [Tylenol Extra Strength] 500 mg PO QID 04/30/22 [History] Ciprofloxacin HCl [Cipro] 500 mg PO BID 10 Days #20 tab 05/07/22 [Rx] Folic Acid 1 mg PO DAILY@1200 tab 05/07/22 [Rx] Heparin Sodium,Porcine [Heparin Sodium] 5,000 unit SQ Q12HR #60 each 05/07/22 [Rx] Melatonin 5 mg PO HS PRN #3 tablet 05/07/22 [Rx] Multivitamins, Thera [Multivitamin (formulary)] 1 each PO DAILY@1200 tab 05/07/22 [Rx] Sennosides [Senokot] 8.6 mg PO BID #60 tab 05/07/22 [Rx] Thiamine [Vitamin B-1] 100 mg PO DAILY@1200 tab 05/07/22 [Rx] bisacodyL [Dulcolax] 10 mg RECTAL ONCE PRN suppositor 05/07/22 [Rx] metroNIDAZOLE [Flagyl] 500 mg PO TID 10 Days #30 tab 05/07/22 [Rx] polyethylene glycoL 3350 [Miralax] 17 gm PO DAILY PRN packet 05/07/22 [Rx] Follow up Appointment(s)/Referral(s): Darryl Collins MD [STAFF PHYSICIAN] - 05/20/22 10:00 am Derek Aguilera MD [STAFF PHYSICIAN] - 1-2 Days Lauro Campbell PAC [PHYSICIAN GEOLOGY ASSOCIATE] - 2 Weeks (Patient may follow-up with Lauro Campbell PA-C or Dr. Juice Golden at [facility] in 2-3 weeks following discharge. ) Activity/Diet/Wound Care/Special Instructions: 1. Patient may wear LSO brace for comfort and support while sitting upright at greater than 45, while working with therapy, and while ambulating; patient does not have to wear the brace while lying in bed or bathing 2. Patient should avoid excessive bending, twisting, and lifting; no lifting greater than 10 pounds Patient is going to [facility] Activity as tolerated Patient will be continued on Cipro and Flagyl as directed for the next 10 days per ID recommendations Patient will need outpatient follow-up with general surgery and oncology once discharged from ECF Patient is continued on a heart healthy diet dysphagia 3 chopped Continue ensure supplements 3 times a day with meals, chocolate Wound care includes cleansing the wound with normal saline daily of the left breast and axilla area and then applying Triad cream and cover with absorptive silver and change daily, okay to change if dressing is soiled Discharge Disposition: TRANSFER TO SNF/ECF
--- NOTE | 2022-05-13 08:11 | P.OP ---
Date of Procedure: 05/05/22 Preoperative Diagnosis: Left breast mass Postoperative Diagnosis: -Left breast mass Procedure(s) Performed: Left breast core biopsy Anesthesia: local Surgeon: Joselito Ramirez Estimated Blood Loss (ml): 2 Pathology: other (Left breast core biopsy) Condition: stable Disposition: PACU Description of Procedure: Patient's placed on her bed in supine position. Her left breast was prepped and draped usual sterile fashion. The breast was anesthetized 1% local Xylocaine. Using a punch biopsy scalpel several punch biopsy core biopsies were performed of the left breast. The specimens of pathology. There was no significant bleeding. Sterile dressings was applied. Patient tolerated will well.
--- NOTE | 2022-05-13 14:30 | P.PN ---
Subjective Progress Note Date: 05/07/22 Principal diagnosis: Left breast/axillary area wound and cellulitis Patient is 89 year old female presenting to the hospital with chronic nonhealing wound to her left breast axillary area and some foul-smelling drainage concerning for possible infected left breast is unremarkable. Posterior On today's evaluation and that is 05/07/2022 patient remains to be afebrile, patient is breathing comfortably on room air, the patient left breast/chest wall pain eye slightly decreased in intensity, no nausea vomiting abdominal pain no diarrhea Objective - Vital Signs Vital signs: Vital Signs Temp 97.5 F L 05/07/22 08:00 Pulse 79 05/07/22 08:00 Resp 18 05/07/22 08:00 BP 139/82 05/07/22 08:00 Pulse Ox 93 L 05/07/22 08:00 FiO2 Intake & Output 05/06/22 05/07/22 05/07/22 18:59 06:59 18:59 Intake Total 838 Output Total 700 600 Balance 138 -600 Weight 59.5 kg 59.5 kg Intake: Oral 838 Output: Urine 700 600 Other: Voiding Method Indwelling Catheter Indwelling Catheter # Bowel Movements 1 - Exam GENERAL DESCRIPTION: An elderly female lying in bed in no distress RESPIRATORY SYSTEM: Unlabored breathing , decreased breath sounds at bases HEART: S1 S2 regular rate and rhythm , Left breast/axillary area with wound some foul-smelling ABDOMEN: Soft , no tenderness EXTREMITIES: No edema feet - Labs CBC & Chem 7: 05/06/22 06:41 05/06/22 06:41 Assessment and Plan (1) Cellulitis Status: Acute Code(s): L03.90 - CELLULITIS, UNSPECIFIED SNOMED Code(s): 335133908 (2) Wound of left breast Status: Acute Priority: High Code(s): S21.002A - UNSPECIFIED OPEN WOUND OF LEFT BREAST, INITIAL ENCOUNTER SNOMED Code(s): 48183889 Plan: 1patient with a chronic nonhealing wound to the left chest wall and armpit area with concern for possible malignancy as did have hard margins and no significant redness some drainage and foul-smelling possible secondary bacterial infection not entirely excluded. 2Patient is status post a biopsy of the left breast mass completed on 05/05/2022 with the patient has tolerated 3positive blood culture with Diphtheroid likely skin contamination no need for vancomycin 4-patient Local cultures growing Acinetobacter along with Enterobacter which is resistant to Unasyn and anaerobes 5-Patient has shown clinical improvement with Zosyn which will be transitioned to oral Cipro and Flagyl x10 days on discharge and close outpatient follow-up Time with Patient: Less than 30
== END 2022-05-07 15:09 | DRG 597 ==
LOC: EC 14:37 → 6NMEDSUR 19:27 → 3SCARD 21:47 → 4SSUR 05-01 12:14 → 3SCARD 05-01 16:11 → 4SSUR 05-06 23:41
PROVIDERS: ADMIT Hospitalist; ATTEND Hospitalist
PROC: 0HB5XZX Excision of Chest Skin, External Approach, Diagnostic (ICD-10-PCS; principal; 2022-05-05)
DX: C50.912 Malignant neoplasm of unspecified site of left female breast (principal); J18.9 Pneumonia, unspecified organism; C79.2 Secondary malignant neoplasm of skin; I96 Gangrene, not elsewhere classified; S32.019A Unspecified fracture of first lumbar vertebra, initial encounter for closed fracture; J90 Pleural effusion, not elsewhere classified; I48.20 Chronic atrial fibrillation, unspecified; I48.92 Unspecified atrial flutter; M48.54XA Collapsed vertebra, not elsewhere classified, thoracic region, initial encounter for fracture; L03.313 Cellulitis of chest wall; L03.116 Cellulitis of left lower limb; E89.0 Postprocedural hypothyroidism; G89.29 Other chronic pain; S21.002A Unspecified open wound of left breast, initial encounter; W19.XXXA Unspecified fall, initial encounter; B96.89 Other specified bacterial agents as the cause of diseases classified elsewhere; B95.7 Other staphylococcus as the cause of diseases classified elsewhere; L98.492 Non-pressure chronic ulcer of skin of other sites with fat layer exposed; M79.89 Other specified soft tissue disorders; M51.36 Other intervertebral disc degeneration, lumbar region; M47.816 Spondylosis without myelopathy or radiculopathy, lumbar region; R29.6 Repeated falls; I89.0 Lymphedema, not elsewhere classified; R26.9 Unspecified abnormalities of gait and mobility; R00.0 Tachycardia, unspecified; Z91.81 History of falling; Z79.1 Long term (current) use of non-steroidal anti-inflammatories (NSAID); Z87.891 Personal history of nicotine dependence; Y92.009 Unspecified place in unspecified non-institutional (private) residence as the place of occurrence of the external cause; Z80.3 Family history of malignant neoplasm of breast; Z91.199 Patient's noncompliance with other medical treatment and regimen due to unspecified reason; Z17.0 Estrogen receptor positive status [ER+]
CPT/HCPCS: 36410; 36415; 70450; 71260; 72125; 72129; 72132; 72170; 74177; 76937; 78306; 80048; 80053; 81003; 82150; 83605; 83690; 83880; 84439; 84443; 85025; 85610; 85730; 86850; 86900; 86901; 87040; 87070; 87075; 87077; 87186; 87205; 87635; 88305; 88341; 88342; 93005; 96361; 96365; 96366; 96367; 96372; 96375; 99291

== ENCOUNTER 2022-06-18 08:52 | Day surgery (SDC) | payer MEDICARE, BC ==
[2022-06-18 09:49] LABS: Mean Platelet Volume 7.1; Platelet Count 455 k/uL (150-450)
[2022-06-18 10:00] LABS: INR 0.9 (<1.2); Prothrombin Time 9.9 sec (9.0-12.0)
[2022-06-18 10:07] VITALS: RESP 18; TEMP 99.1
--- NOTE | 2022-06-18 10:44 | US ---
Ultrasound-guided therapeutic and diagnostic thoracentesis DATE OF EXAM: 06/18/2022 CLINICAL HISTORY: Left pleural effusion Preliminary imaging demonstrated only a very small amount of pleural fluid. Procedure deferred. IMPRESSION: 1. Deferred thoracentesis due to small amount of pleural fluid.
[2022-06-18 11:06] VITALS: PULSE 75
== END 2022-06-18 11:00 | disposition home or self-care (01) ==
LOC: RADPROMAIN 08:52
PROVIDERS: ATTEND Internal Medicine
DX: J90 Pleural effusion, not elsewhere classified (principal)
CPT/HCPCS: 36415; 76604; 85049; 85610